=== PATIENT | female | born 1985 | race Caucasian/White ===

== ENCOUNTER → 2019-06-25 10:28 | Outpatient (CLI) | payer OTHER, SELFPAY ==
[2018-11-27 09:49] VITALS: BMI 28.0
[2019-06-25 12:21] LABS: hCG Titer Quant., Serum 3 mIU/mL (1-3)
== END ==
PROVIDERS: Visit Provider Obstetrics & Gynecology
DX: O20.0 Threatened abortion (principal); Z3A.00 Weeks of gestation of pregnancy not specified
CPT/HCPCS: 36415; 84702

== ENCOUNTER → 2019-06-27 11:33 | Outpatient (CLI) | payer OTHER, SELFPAY ==
[2018-11-27 09:49] VITALS: BMI 28.0
[2019-06-27 12:39] LABS: hCG Titer Quant., Serum 1 mIU/mL (1-3)
== END ==
PROVIDERS: Visit Provider Obstetrics & Gynecology
DX: O20.0 Threatened abortion (principal); Z3A.00 Weeks of gestation of pregnancy not specified
CPT/HCPCS: 36415; 84702

== ENCOUNTER → 2020-05-26 13:08 | Outpatient (CLI) | payer OTHER, SELFPAY ==
[2018-11-27 09:49] VITALS: BMI 28.0
[2020-05-26 14:18] LABS: hCG Titer Quant., Serum 3753 mIU/mL (1-3)
== END ==
PROVIDERS: Referring Provider Obstetrics & Gynecology; Visit Provider Obstetrics & Gynecology
DX: Z32.01 Encounter for pregnancy test, result positive (principal)
CPT/HCPCS: 36415; 84702

== ENCOUNTER → 2020-06-26 | Outpatient (CLI) | payer OTHER, SELFPAY ==
[2020-06-26 14:50] VITALS: BMI 27.6
[2020-06-26 17:52] LABS: Amphetamine Urine VISTA NEGATIVE (<1000 ng/mL); Barbiturate Urine VISTA NEGATIVE (< 200 ng/mL); Benzodiazepine Urine VISTA NEGATIVE (< 200 ng/mL); Cocaine Urine VISTA NEGATIVE (< 300 ng/mL); Ecstacy Urine VISTA NEGATIVE (< 500 ng/mL); Methadone Urine VISTA NEGATIVE (< 300 ng/mL); PCP Urine VISTA NEGATIVE (< 25 ng/mL); THC Urine VISTA NEGATIVE (< 50 ng/mL); Vista UDS pH Range 6
[2020-06-29 20:08] LABS: Chlamydia By Nucleic Acid AMP Negative (Negative)
[2020-06-29 21:39] LABS: Gonococcus By Nucleic Acid AMP Negative (Negative)
== END | disposition home or self-care (01) ==
LOC: LABSPEC 16:42
PROVIDERS: Visit Provider Obstetrics & Gynecology
DX: O09.529 Supervision of elderly multigravida, unspecified trimester (principal); Z12.4 Encounter for screening for malignant neoplasm of cervix; Z3A.00 Weeks of gestation of pregnancy not specified
CPT/HCPCS: 80307; 87086; 87491; 87591

== ENCOUNTER → 2020-07-10 15:06 | Outpatient (CLI) | payer OTHER, SELFPAY ==
[2020-06-26 14:50] VITALS: BMI 27.6
[2020-07-10 15:38] LABS: Absolute Lymphocyte Count 2.38 X10^3/uL (0.83-4.51); Absolute Neutrophil Count 4.1 X10^3/uL (2.0-7.7); Basophil# 0.08 X10^3/uL; Basophil% 1.1 % (0-1); Eosinophil# 0.29 X10^3/uL; Eosinophils% 3.9 % (0-5); Hematocrit 39.7 % (37-47); Hemoglobin 13.1 g/dL (12.0-15.0); Lymphocyte # 2.38 X10^3/ul (4.0); Lymphocyte % 31.7 % (19-41); Mean Corpuscular Hgb 28.3 pg (27.0-32.0); Mean Corpuscular Volume 85.7 fL (81-99); Mean Platelet Vol. 9.4 fl (6.2-12.0); NRBC Flagged by Analyzer 0 % (0-5); Neutrophil # 4.12 X10^3/uL (2.7-7.7); Neutrophil % 54.9 % (47-70); Platelet Count 311 K/mm3 (150-450); RBC Distribution Width CV 12.8 % (11.6-14.6); RBC Distribution Width SD 39.8 fl (35.1-43.9); Red Blood Count 4.63 M/mm3 (4.2-5.4); White Blood Count 7.5 K/mm3 (4.4-11.0)
[2020-07-11 09:03] LABS: HIV - WCH Non-Reactive (Nonreactive); Hepatitis B Surface Antigen Non-Reactive (Nonreactive); Hepatitis C Antibody Non-Reactive (Nonreactive)
[2020-07-13 02:11] LABS: Rapid Plasmin Reagin (RPR) NONREACTIVE (NONREACTIVE)
== END ==
PROVIDERS: Obstetrics & Gynecology; Referring Provider Family Medicine; Visit Provider Family Medicine
DX: O09.90 Supervision of high risk pregnancy, unspecified, unspecified trimester (principal); O09.529 Supervision of elderly multigravida, unspecified trimester
CPT/HCPCS: 36415; 85025; 86592; 86703; 86803; 86850; 86900; 86901; 87340

== ENCOUNTER → 2020-11-01 12:16 | Outpatient (CLI) | payer OTHER, SELFPAY ==
[2020-10-25 09:31] VITALS: BMI 31.5
[2020-11-01 14:47] LABS: Absolute Lymphocyte Count 2.17 X10^3/uL (0.83-4.51); Absolute Neutrophil Count 5.8 X10^3/uL (2.0-7.7); Basophil# 0.06 X10^3/uL; Basophil% 0.7 % (0-1); Eosinophil# 0.22 X10^3/uL; Eosinophils% 2.4 % (0-5); Hematocrit 35.4 % (37-47); Hemoglobin 11.5 g/dL (12.0-15.0); Lymphocyte # 2.17 X10^3/ul (4.0); Lymphocyte % 24.1 % (19-41); Mean Corp Hgb Conc 32.5 g/dL (32-36); Mean Corpuscular Hgb 29.7 pg (27.0-32.0); Mean Corpuscular Volume 91.5 fL (81-99); Mean Platelet Vol. 9.8 fl (6.2-12.0); Monocyte# 0.63 X10^3/uL; NRBC Flagged by Analyzer 0 % (0-5); Neutrophil % 64.4 % (47-70); Platelet Count 314 K/mm3 (150-450); RBC Distribution Width CV 12.8 % (11.6-14.6); RBC Distribution Width SD 42.4 fl (35.1-43.9); Red Blood Count 3.87 M/mm3 (4.2-5.4)
[2020-11-01 15:12] LABS: Glucose Challenge Gest 1H 50g 123 mg/dL (70-140)
== END ==
PROVIDERS: Referring Provider Obstetrics & Gynecology; Visit Provider Obstetrics & Gynecology
DX: O26.899 Other specified pregnancy related conditions, unspecified trimester (principal); Z67.91 Unspecified blood type, Rh negative; Z3A.00 Weeks of gestation of pregnancy not specified
CPT/HCPCS: 82950; 85025; 86850; 86900; 86901

== ENCOUNTER → 2020-12-21 12:21 | Outpatient (CLI) | payer OTHER, SELFPAY ==
[2020-11-29 14:10] VITALS: BMI 32.8
--- NOTE | 2020-12-21 12:35 | RAD_ITS ---
STUDY: X-RAY CHEST REASON FOR EXAM: Female, 35 years old. S/P COVID and gt;2 WEEKS/35 WEEKS TECHNIQUE: PA and lateral views of the chest. COMPARISON: None. FINDINGS: Patchy bibasilar infiltrates. Mild infiltrate in the right upper lobe. There is no demonstrated pleural abnormality. Normal size heart. Normal mediastinum and sisi. Normal visualized pulmonary arteries. Normal visualized aortic arch and descending thoracic aorta. Normal visualized thoracic spine. Normal visualized ribs, clavicles, and shoulders. There is no demonstrated abnormality of the visualized soft tissue structures of the upper abdomen. RAD/Chest PA and Lateral IMPRESSION: Patchy bibasilar infiltrates. Mild infiltrate in the right upper lobe. Electronically Signed: Prateek Leon MD at 13:06 EDT , Service support ,
== END ==
PROVIDERS: Referring Provider Anesthesiology; Visit Provider Anesthesiology
DX: O09.513 Supervision of elderly primigravida, third trimester (principal); Z3A.35 35 weeks gestation of pregnancy; Z86.16 Personal history of COVID-19
CPT/HCPCS: 71046

== ENCOUNTER 2020-12-21 16:24 | Inpatient (IN) | payer OTHER, SELFPAY ==
[2020-11-29 14:10] VITALS: BMI 32.8
[2020-12-21] VITALS (73 sets, daily range): BP systolic 116–136; BP diastolic 65–95; PULSE 79–113; RESP 14–22; TEMP 35.9–37.1; O2SAT 90–98; BMI 32.8; BMI 32.5
[2020-12-21 17:10] LABS: Basophil# 0.12 X10^3/uL; Eosinophil# 0.09 X10^3/uL; Hematocrit 37.6 % (37-47); Hemoglobin 12.3 g/dL (12.0-15.0); Lymphocyte # 1.46 X10^3/ul (0.83-4.51); Mean Corp Hgb Conc 32.7 g/dL (32-36); Mean Corpuscular Hgb 30.1 pg (27.0-32.0); Mean Corpuscular Volume 91.9 fL (81-99); Mean Platelet Vol. 9.8 fl (6.2-12.0); Monocyte# 0.62 X10^3/uL; NRBC Flagged by Analyzer 0.2 % (0-5); Neutrophil # 6.05 X10^3/uL (2.7-7.7); POSITIVE COUNT YES; POSITIVE MORPHOLOGY YES; Platelet Count 480 K/mm3 (150-450); RBC Distribution Width CV 12.8 % (11.6-14.6); RBC Distribution Width SD 43.1 fl (35.1-43.9); Red Blood Count 4.09 M/mm3 (4.2-5.4)
[2020-12-21 17:13] LABS: Differential Indicated SCAN CRITERIA MET
[2020-12-21 17:27] LABS: ALB/GLOB Ratio 0.4 RATIO (0.9-2.4); AST(SGOT) 82 U/L (15-37); Alanine Aminotransfer ALT/SGPT 48 U/L (13-56); Albumin, Serum 1.9 g/dL (3.2-5.0); Alkaline Phosphatase 296 U/L (45-117); Anion Gap 6 (5-15); BUN 9 mg/dL (7-18); BUN/Creat Ratio 14.2 RATIO (10-20); Calcium,Total 9.1 mg/dL (8.5-10.1); Chloride 109 mmol/L (98-107); Creatinine, Serum 0.63 mg/dL (0.55-1.02); EST Glomerular Filtration Rate 113 mL/min (>60); Est Glom Filt Rate - Afr Amer 136 mL/min (>60); Estimated Creatinine Clearance 120.05 ml/min; Globulin 4.9 g/dL (2.2-4.2); Glucose 80 mg/dL (74-106); Potassium 3.9 mmol/L (3.5-5.1); Protein, Total 6.8 g/dL (6.4-8.2); Sodium Level 140 mmol/L (136-145)
[2020-12-21 17:43] LABS: Lymphocyte 21 % (19-41); Metamyelocyte 3 % (0-1); Monocyte 6 % (0-10); Myelocyte 4 % (0-0); Neutrophil-Band 2 % (0-5); Neutrophil-Segmented 64 % (47-70); Total Cells Counted 100 (MANUAL DIFF)
[2020-12-21 17:44] LABS: Scan Smear per Review Criteria MANUAL DIFF
[2020-12-21 17:46] LABS: Absolute Lymphocyte Count 1.88 X10^3/uL (0.83-4.51); Absolute Neutrophil Count 5.9 X10^3/uL (2.0-7.7)
[2020-12-21 17:47] LABS: Platelet Estimate SLT INC (ADEQ)
[2020-12-21 17:48] LABS: Anisocytosis RARE; Macrocytosis RARE
[2020-12-21 18:04] LABS: Lactic Acid 1.2 mmol/L (0.4-1.9)
--- NOTE | 2020-12-21 18:05 | ED.VISSUMM ---
- ER Visit Summary Date of Service: 12/21/20 Chief Complaint: Shortness of breath History of Present Illness: The patient is a 35 F who presents with shortness of breath that has been getting worse over the past 2 weeks. Patient is approximately 35 weeks . Patient tested positive for COVID-19 approximately 2 weeks ago. Patient states her breathing is been getting progressively worse. Patient states that her oxygen saturations are 88 to 92% at home with walking and improved to 94 to 97% at rest. Patient states she finished a Z-Chandan with no improvement of her symptoms. Patient states she was started on Pulmicort yesterday evening. Patient saw her fifth hand today who referred her to the emergency department. Physical Examination: Vital signs are stable. Patient is afebrile. Patient is in no acute distress. Neck is supple. Trachea is midline. There is no JVD. Heart was regular rate and rhythm. Lungs are clear and equal bilaterally. There is adequate respiratory effort. Abdomen is soft. Bowel sounds are normal. There is a gravid uterus. There is no tenderness. Extremities are intact. There is 1-2+ edema of the lower extremities bilaterally. There is no calf tenderness. Cranial nerves II through XII are intact. There are no focal motor or sensory deficits. Test Results: Patient had a PA and lateral chest x-ray done earlier today as an outpatient which showed patchy bibasilar infiltrates and a mild infiltrate in the right upper lobe. This was interpreted by the radiologist and reviewed by myself. CBC showed slightly elevated platelet count of 480. Comprehensive metabolic profile showed a slightly elevated alk phos of 296 and AST of 82. Lactate was normal at 1.2. COVID-19 rapid antigen was obtained and was negative. This is likely a false negative since the patient is still symptomatic with COVID-19.. Therefore, a COVID-19 PCR was ordered and is pending. Emergency Department Course and Treatment: Patient was given a dose of Decadron here in the emergency department. Patient was given albuterol inhaler here in the emergency department. Dr. Martinez, patient's fifth hand was in to evaluate the patient and recommended admission. Case was discussed with Dr. Love, patient's ASSOCIATE ACCOUNT MANAGER. She will admit the patient to the OB unit. Patient and family understood and were agreeable with the plan. All questions were answered. Disposition: Admit to hospital Impression: 1. COVID-19 pneumonia 2. Third trimester This note was generated with Dreamscape [employer] dictation software. It may contain incorrect words, spelling, and punctuation that were not noted in review of the chart prior to signing ED Disposition - Plan for ED Patient: Disposition: Acute Care Hospital [facility] Diagnosis: Pneumonia due to COVID-19 virus, 34 weeks gestation of Referrals: Care Physician,No Primary [Primary Care Provider] -
[2020-12-21] MEDS: dexAMETHasone 10 MG/ML Vial 6 MG IV (18:16)
--- NOTE | 2020-12-21 19:40 | US_ITS ---
STUDY: SECOND AND THIRD TRIMESTER OBSTETRICAL ULTRASOUND - LIMITED REASON FOR EXAM: Female, 35 years old growth pt has COVID LMP: 04/17/2020 PRIOR ULTRASOUND: None. TECHNIQUE: Transabdominal TECHNICAL QUALITY: Adequate. FINDINGS: There is a single intrauterine fetus. The fetus is in a cephalic presentation. There is demonstrated cardiac activity with a heart rate of 169 bpm. There is a normal amniotic fluid volume. The largest amniotic fluid pocket measures 5.9 cm. The amniotic fluid index (ZACHARIAH) is 10.2 cm. The placenta is fundal in location. There are Grade 2 placental changes. The cervix measures 3.6 cm in length. BIOMETRY: BPD: 9.1 cm: 36 weeks, 5 days HC: 33.5 cm: 38 weeks, 1 days AC: 30.1 cm: 34 weeks, 0 days FL: 6.5 cm: 33 weeks, 2 days Age by LMP: 35 weeks, 3 days. DAVID by LMP: 01/22/2021. age by current US: 36 weeks, 0 days. DAVID by current US: 01/18/2021. Estimated weight: 2431 grams, +/- 365 grams, 23 percentile. Gender: US/OB Limited With Biometrics IMPRESSION: Living intrauterine of 36 weeks 0 days as described above. Electronically Signed: Erik Hart MD at 8:59 EDT Tel , Service support ,
--- NOTE | 2020-12-21 19:51 | CON.PCM_ITS ---
Problem List (1) Pneumonia due to COVID-19 virus Status: Acute (2) 34 weeks gestation of Status: Acute Comment: COVID test order 12/13/20 (3) COVID-19 affecting , antepartum Status: Acute Comment: Needs Baby ASA and growth US- 12/21/20 patient being admitted for IV antiviral- MFM being consulted (4) Grand multiparity Status: Acute (5) H/O precipitous labor and deliveries, antepartum Status: Acute (6) Rh negative state in antepartum period Status: Acute Comment: Rhogam PRN and at 28 weeks (7) Supervision of high risk , antepartum Status: Acute Comment: DAVID 01/22/21 PC: Fantasma Devine Ioan(Shaw), Bhanu Spouse: Cabrera(Shaw) (8) Status: Acute Qualifiers: Comment: declines genetic, carrier and NTD, anatomy nl (9) AMA (advanced maternal age) multigravida 35+ Status: Acute Qualifiers: Comment: growth scan at 36 weeks Reason for Consult Date of Consultation: 12/21/20 Reason for Consultation: Hypoxia History of Present Illness: The patient is a 35 year old F who is at 35 weeks and 4 days presenting with hypoxia after testing positive for Covid 19 virus around 12/09/2020. Patient reports that at around 12/07/2020 and 12/08/2020 she had symptoms of Covid. Her at that time had a fever. Patient subsequently tested positive for Covid-19 virus. She reports initial shortness of breath that worsened and now has improved somewhat. Also she had a cough which has improved. She reported that she checked her oxygen saturation at home. And at rest her oxygen saturati on was normal. However with ambulation her oxygen saturation is in the high 80s to 91%. 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 Chest x-ray outpatient taken on the day of presentation reportedly was classic for Covid-19. Patient had some phone conversation withDr. Marin prior to coming to the emergency department and was started on Pulmicort a day before presentation. Also on the day of presentation patient was seen at the ED by Dr. Marin. EMOTIONAL DISABILITIES TEACHER specialist reports that per conversation between Dr. Marin, flask carrier and infectious disease it is okay to start patient on remdesivir although patient symptoms is past 10 days. Past Medical History Medical History: Medical History (Last Reviewed 12/21/20 @ 20:[address] Bhanu Carrillo MD) No significant medical problems Allergies No Known Allergies Allergy (Verified 12/21/20 16:27) Home Medications: Ambulatory Orders Medication Instructions Recorded multivitamin no.47-iron fum 27 1 cap PO DAILY 06/21/20 mg-folate no.1 1 mg-dha 300 mg capsule Aspirin [Aspirin, Baby] 1 tablet PO DAILY 12/21/20 Robitussin 10 mg DAILY PRN PRN 12/21/20 Surgical History: Surgical History (Last Reviewed 12/21/20 @ 20:[address] Bhanu Carrillo MD) H/O wisdom tooth extraction K08.409 Smoking Status: Never smoker Tobacco Use: Non-smoker - *Family History Maternal Family History: Family History (Last Reviewed 12/21/20 @ 20:[address] Bhanu Carrillo MD) Grandmother Cancer Grandmother Cancer Review of Systems Constitutional: Reports: Malaise, Weakness, Fatigue. Denies: Chills, Fever HEENT: Denies: Head Aches, Sinus Congestion, Sinus Drainage Cardiovascular: Reports: Edema - Started with . Denies: Chest Pain, Palpitations Respiratory: Reports: Cough, Shortness of Breath Gastrointestinal: Denies: Abdominal Pain, Nausea, Vomiting Genitourinary: Denies: Dysuria Musculoskeletal: Denies: Joint Pain, Joint Tenderness Skin: Denies: Rash, Wounds Neurological: Denies: Numbness, Tingling, Focal weakness Psychiatric: Denies: Anxiety, Depression, Homicidal Ideations, Suicidal Ideations Hematologic/ Lymphatic: Denies: Easy Bruising, Easy Bleeding Patient Problems: Active and Suspected Problems (Last Reviewed 12/21/20 @ 20:[address] Bhanu Carrillo MD) Pneumonia due to COVID-19 virus (Acute) 34 weeks gestation of (Acute) COVID test order 12/13/20 COVID-19 affecting , antepartum (Acute) Needs Baby ASA and growth US- 12/21/20 patient being admitted for IV antiviral- MFM being consulted Grand multiparity (Acute) H/O precipitous labor and deliveries, antepartum (Acute) Rh negative state in antepartum period (Acute) Rhogam PRN and at 28 weeks Supervision of high risk , antepartum (Acute) DAVID 01/22/21 PC: Nilson, Fantasma, Cabrera(Shaw), Bhanu Spouse: Cabrera(Shaw) (Acute) declines genetic, carrier and NTD, anatomy nl AMA (advanced maternal age) multigravida 35+ (Acute) growth scan at 36 weeks - Physical Exam Vitals/I&O's: Vital Signs Temp Pulse Resp BP Pulse Ox 97.7 F L 105 H 21 H 135/72 H 90 12/21/20 18:17 12/21/20 19:47 12/21/20 18:17 12/21/20 19:10 12/21/20 19:47 Oxygen Delivery Method Room Air Weight: 95 kg Body Mass Index (BMI) 32.8 General: Alert, Oriented x3, Cooperative HEENT: Atraumatic, PERRLA, EOMI, Normocephalic Neck: Supple, No JVD, Negative Carotid Bruits Lungs: Clear to auscultation, Normal air movement Cardiovascular: Regular rate, Normal S1, Normal S2, No murmurs Abdomen: Bowel Sounds Present, Soft, Non Tender, - - Protruded abdomen consistent with . Extremities: Capillary Refill Less than 3 Seconds, Edema - bilateral feet. Skin: No rashes, No breakdown Musculoskeletal: No Tenderness to Palpation of Joints or Extremities Neurological: Cranial nerves II-XII grossly intact Psych/Mental Status: Normal Affect, Appropriate Microbiology Past 72 Hours 12/21/20 17:19 Nasal Secretion SARS-CoV-2 Antigen (Rapid) - Final Laboratory Results 12/21/20 15:15: Lactic Acid 1.2 12/21/20 16:41: WBC 9.0, RBC 4.09 L, Hgb 12.3, Hct 37.6, MCV 91.9, MCH 30.1, MCHC 32.7, RDW Std Deviation 43.1, RDW Coeff of Jim 12.8, Plt Count 480 H, MPV 9.8, Immature Gran % (Auto) FIRE INFORMATION OFFICER, Neut % (Auto) FIRE INFORMATION OFFICER, Lymph % (Auto) FIRE INFORMATION OFFICER, Haskell % (Auto) FIRE INFORMATION OFFICER, Eos % (Auto) FIRE INFORMATION OFFICER, Baso % (Auto) FIRE INFORMATION OFFICER, Absolute Neuts (auto) 5.9, Absolute Lymphs (auto) 1.88, Total Counted 100, Neutrophils % (Manual) 64, Band Neutrophils % 2, Lymphocytes % (Manual) 21, Monocytes % (Manual) 6, Metamyelocytes % 3 H, Myelocytes % 4 H, Nucleated RBC % 0.2, Diff Path Review May foll, Platelet Estimate SLT INC, Anisocytosis RARE, Macrocytosis RARE 12/21/20 16:41: Sodium 140, Potassium 3.9, Chloride 109 H, Carbon Dioxide 25.0, Anion Gap 6, BUN 9, Creatinine 0.63, Estim Creat Clear Calc 120.05, Est GFR (MDRD) Af Amer 136, Est GFR (MDRD) Non-Af 113, BUN/Creatinine Ratio 14.2, Glucose 80, Calcium 9.1, Total Bilirubin 0.80, AST 82 H, ALT 48, Alkaline Phosphatase 296 H, Total Protein 6.8, Albumin 1.9 L, Globulin 4.9 H, Albumin/Globulin Ratio 0.4 L 12/21/20 18:20: COVID-19 (JENNY) Pending Current Medications Aspirin (Aspirin 81 Mg Tab.Chew) mg PO DAILY JOSEF Dexamethasone Sodium Phosphate (Dexamethasone 4 Mg/Ml Vial) 6 mg IV Q12 JOSEF Enoxaparin Sodium (Enoxaparin 40 Mg/0.4 Ml Syringe) 40 mg SC DAILY JOSEF Remdesivir 200 mg/ Sodium (Chloride) 250 mls @ 125 mls/hr IV X1 ONE; Protocol Stop: 12/21/20 21:39 Remdesivir 100 mg/ Sodium (Chloride) 250 mls @ 125 mls/hr IV DAILY JOSEF; Protocol Stop: 12/25/20 11:59 Non-Formulary Medication ( 47/Iron/Folate 1/Dha [Virt-Pn Dha Softgel]) 1 cap PO DAILY JOSEF Assessment/Plan All Active Problems (Last Reviewed 12/21/20 @ 20:[address] Bhanu Carrillo MD) Pneumonia due to COVID-19 virus (Acute) 34 weeks gestation of (Acute) COVID-19 affecting , antepartum (Acute) Grand multiparity (Acute) H/O precipitous labor and deliveries, antepartum (Acute) Rh negative state in antepartum period (Acute) Supervision of high risk , antepartum (Acute) (Acute) AMA (advanced maternal age) multigravida 35+ (Acute) The patient is a 35 year old F who is at 35 weeks and 4 days presenting with hypoxia and shortness of breath after testing positive for Covid 19 virus around 12/09/2020. Acute hypoxemic respiratory insufficiency secondary to SARS- COV 2 Reportedly her oxygen saturation was in the high 80s to lower 90s with ambulation or exertion. Oxygen supplementation as needed to maintain oxygen saturation more than 92%. Radiologist impression of chest x-ray obtained before patient came to emergency department: Patchy bibasilar infiltrates. Mild infiltrate in the right upper lobe. Actual image of the chest x-ray was reviewed and independently interpreted. I agree with radiologist interpretation. Positive coronavirus test outpatient. COVID-19 PCR test was ordered at emergency department and results are pending. Will check a procalcitonin level Received a Decadron 6 mg IV at emergency department. Discussed the case with EMOTIONAL DISABILITIES TEACHER specialist who said that patient will receive augmented dose of Decadron also for lung maturity. Discussed case with EMOTIONAL DISABILITIES TEACHER specialist who said that Per recommendations from Dr. Marin, Pulmonology and infectious disease patient will be started on remdesivir. Defer remdesivir dosing to EMOTIONAL DISABILITIES TEACHER. Trend CMP and CBC 35 weeks and 4 days Management by primary, EMOTIONAL DISABILITIES TEACHER Elevated liver enzymes. Patient with elevated AST and alkaline phosphatase. Trend CMP. DVT prophylaxis Lovenox ordered by primary. Inpatient E&M: [id number] Subs Hosp L2
[2020-12-21] MEDS: Prenatal Vits Tablet 1 TABLET PO (21:30)
--- NOTE | 2020-12-21 21:30 | HP.PCM_ITS ---
- Problem List (1) Pneumonia due to COVID-19 virus Status: Acute (2) 34 weeks gestation of Status: Acute Comment: COVID test order 12/13/20 (3) COVID-19 affecting , antepartum Status: Acute Comment: Needs Baby ASA and growth US- 12/21/20 patient being admitted for IV antiviral- MFM being consulted (4) Grand multiparity Status: Acute (5) H/O precipitous labor and deliveries, antepartum Status: Acute (6) Rh negative state in antepartum period Status: Acute Comment: Rhogam PRN and at 28 weeks (7) Supervision of high risk , antepartum Status: Acute Comment: DAVID 01/22/21 PC: Fantasma Devine Ioan(Shaw), Bhanu Spouse: Cabrera(Shaw) (8) Status: Acute Qualifiers: Comment: declines genetic, carrier and NTD, anatomy nl (9) AMA (advanced maternal age) multigravida 35+ Status: Acute Qualifiers: Comment: growth scan at 36 weeks History Date of Admission: 12/21/20 Final DAVID: 01/22/21 Gestational age: 35 Weeks and 3 Days History of this : This is a 35 year-old, G 6, P 4, at 35 weeks gestational age admitted due to Covid 19 in . Patient first tested positive for Covid 14 days ago. Has had minimal relief in her symptoms since this time and has had ongoing shortness of breath as well as cough. Patient was planning to see a Dr. Martinez from pulmonology as an outpatient, but when he spoke to the patient on the phone today she was noted to be increasingly dyspneic between sentences. She went for chest x-ray that demonstrated bilateral infiltrates consistent with pneumonia related to COVID-19. Patient reports continues to feel short of breath. Denies lightheadedness and dizziness. Patient was noted to have a decrease in her sats with ambulation as low as the 80s. Patient was admitted for symptomatic management and inpatient monitoring. Medical History: Medical History (Last Reviewed 12/21/20 @ 20:[address] Bhanu Carrillo MD) No significant medical problems Surgical History: Surgical History (Last Reviewed 12/21/20 @ 20:[address] Bhanu Carrillo MD) H/O wisdom tooth extraction K08.409 Allergies No Known Allergies Allergy (Verified 12/21/20 16:27) Home Medications: Home Medications multivitamin no.47-iron fum 27 mg-folate no.1 1 mg-dha 300 mg capsule 1 cap PO DAILY 06/21/20 Aspirin [Aspirin, Baby] 1 tablet PO DAILY 12/21/20 Robitussin 10 mg DAILY PRN PRN 12/21/20 Smoking Status: Never smoker NST - FHR Rate Baby A Baseline: 140 Variability:: Moderate Accelerations:: 15 x 15 Decelerations:: None NST Reactive:: Yes FHR Category:: Category I Uterine Activity:: None History Past Pregnancies: Past Pregnancies Delivery Date Name GA/ Weeks Outcome Route Wt Sex Labor Length Anesthesia Delivery Location Provider FOB Labs: Laboratory Tests 12/21/20 12/21/20 12/21/20 Range/Units 16:41 16:41 15:15 WBC 9.0 (4.4-11.0) K/mm3 RBC 4.09 L (4.2-5.4) M/mm3 Hgb 12.3 (12.0-15.0) g/dL Hct 37.6 (37-47) % MCV 91.9 (81-99) fL MCH 30.1 (27.0-32.0) pg MCHC 32.7 (32-36) g/dL RDW Std Deviation 43.1 (35.1-43.9) fl RDW Coeff of Jim 12.8 (11.6-14.6) % Plt Count 480 H (150-450) K/mm3 MPV 9.8 (6.2-12.0) fl Immature Gran % (Auto) PERSONAL CARE AIDE Neut % (Auto) PERSONAL CARE AIDE Lymph % (Auto) PERSONAL CARE AIDE Weston % (Auto) PERSONAL CARE AIDE Eos % (Auto) PERSONAL CARE AIDE Baso % (Auto) PERSONAL CARE AIDE Absolute Neuts (auto) 5.9 (2.0-7.7) X10^3/uL Absolute Lymphs (auto) 1.88 (0.83-4.51) X10^3/uL Total Counted 100 (MANUAL DIFF) Neutrophils % (Manual) 64 (47-70) % Band Neutrophils % 2 (0-5) % Lymphocytes % (Manual) 21 (19-41) % Monocytes % (Manual) 6 (0-10) % Metamyelocytes % 3 H (0-1) % Myelocytes % 4 H (0-0) % Nucleated RBC % 0.2 (0-5) % Diff Path Review May foll Platelet Estimate SLT INC (ADEQ) Anisocytosis RARE Macrocytosis RARE Sodium 140 (136-145) mmol/L Potassium 3.9 (3.5-5.1) mmol/L Chloride 109 H (98-107) mmol/L Carbon Dioxide 25.0 (21.0-32.0) mmol/L Anion Gap 6 (5-15) BUN 9 (7-18) mg/dL Creatinine 0.63 (0.55-1.02) mg/dL Estim Creat Clear Calc 120.05 ml/min Est GFR (MDRD) Af Amer 136 (>60) mL/min Est GFR (MDRD) Non-Af 113 (>60) mL/min BUN/Creatinine Ratio 14.2 (10-20) RATIO Glucose 80 (74-106) mg/dL Lactic Acid 1.2 (0.4-1.9) mmol/L Calcium 9.1 (8.5-10.1) mg/dL Total Bilirubin 0.80 (0.20-1.00) mg/dL AST 82 H (15-37) U/L ALT 48 (13-56) U/L Alkaline Phosphatase 296 H (45-117) U/L Total Protein 6.8 (6.4-8.2) g/dL Albumin 1.9 L (3.2-5.0) g/dL Globulin 4.9 H (2.2-4.2) g/dL Albumin/Globulin Ratio 0.4 L (0.9-2.4) RATIO Mom's Microbiology 12/21/20 17:19 Nasal Secretion SARS-CoV-2 Antigen (Rapid) - Final 12/21/20 15:15 Blood Culture (Wb) - Anticubital Right Blood Culture - Pending 12/21/20 15:25 Blood Culture (Wb) - Anticubital Left Blood Culture - Pending Mom's Problem List Problem Status Onset Code Pneumonia due to COVID-19 virus Acute U07.1, J12.82 34 weeks gestation of Acute Z3A.34 COVID-19 affecting , antepartum Acute O98.519, U07.1 Grand multiparity Acute Z64.1 H/O precipitous labor and deliveries, antepartum Acute O09.219 Rh negative state in antepartum period Acute O26.899, Z67.91 Supervision of high risk , antepartum Acute O09.90 Acute Z34.90 AMA (advanced maternal age) multigravida 35+ Acute O09.529 Mom's Labs & Results 12/21/20 12/21/20 12/21/20 15:15 16:41 16:41 WBC 9.0 RBC 4.09 L Hgb 12.3 Hct 37.6 MCV 91.9 MCH 30.1 MCHC 32.7 RDW Std Deviation 43.1 RDW Coeff of Jim 12.8 Plt Count 480 H MPV 9.8 Immature Gran % (Auto) PERSONAL CARE AIDE Neut % (Auto) PERSONAL CARE AIDE Lymph % (Auto) PERSONAL CARE AIDE Weston % (Auto) PERSONAL CARE AIDE Eos % (Auto) PERSONAL CARE AIDE Baso % (Auto) PERSONAL CARE AIDE Absolute Neuts (auto) 5.9 Absolute Lymphs (auto) 1.88 Total Counted 100 Neutrophils % (Manual) 64 Band Neutrophils % 2 Lymphocytes % (Manual) 21 Monocytes % (Manual) 6 Metamyelocytes % 3 H Myelocytes % 4 H Nucleated RBC % 0.2 Diff Path Review May foll Platelet Estimate SLT INC Anisocytosis RARE Macrocytosis RARE Sodium 140 Potassium 3.9 Chloride 109 H Carbon Dioxide 25.0 Anion Gap 6 BUN 9 Creatinine 0.63 Estim Creat Clear Calc 120.05 Est GFR (MDRD) Af Amer 136 Est GFR (MDRD) Non-Af 113 BUN/Creatinine Ratio 14.2 Glucose 80 Lactic Acid 1.2 Calcium 9.1 Total Bilirubin 0.80 AST 82 H ALT 48 Alkaline Phosphatase 296 H Total Protein 6.8 Albumin 1.9 L Globulin 4.9 H Albumin/Globulin Ratio 0.4 L Procalcitonin COVID-19 (JENNY) 12/21/20 12/21/20 18:20 21:15 WBC RBC Hgb Hct MCV MCH MCHC RDW Std Deviation RDW Coeff of Jim Plt Count MPV Immature Gran % (Auto) Neut % (Auto) Lymph % (Auto) Weston % (Auto) Eos % (Auto) Baso % (Auto) Absolute Neuts (auto) Absolute Lymphs (auto) Total Counted Neutrophils % (Manual) Band Neutrophils % Lymphocytes % (Manual) Monocytes % (Manual) Metamyelocytes % Myelocytes % Nucleated RBC % Diff Path Review Platelet Estimate Anisocytosis Macrocytosis Sodium Potassium Chloride Carbon Dioxide Anion Gap BUN Creatinine Estim Creat Clear Calc Est GFR (MDRD) Af Amer Est GFR (MDRD) Non-Af BUN/Creatinine Ratio Glucose Lactic Acid Calcium Total Bilirubin AST ALT Alkaline Phosphatase Total Protein Albumin Globulin Albumin/Globulin Ratio Procalcitonin Pending COVID-19 (JENNY) Pending Social History Smoking Status Never smoker Review of Systems Constitutional: Reports: Chills, Fever, Fatigue Eyes: Denies: Vision Change HEENT: Denies: Head Aches Cardiovascular: Denies: Chest Pain, Chest Pressure, Chest Tightness, Light Headedness Respiratory: Reports: Cough, Shortness of Breath, Shortness of breath upon exertion Gastrointestinal: Denies: Abdominal Pain, Nausea, Vomiting Genitourinary: Denies: Dysuria, Frequency, Hematuria Gynecological: Denies: Vaginal bleeding, Vaginal discharge, Vaginal itching Physical Exam Vitals: Vital Signs Temp Pulse Resp BP Pulse Ox 97.7 F L 97 21 H 128/65 H 96 12/21/20 20:08 12/21/20 21:26 12/21/20 18:17 12/21/20 20:23 12/21/20 21:26 General: Alert, Oriented x3, Cooperative, No apparent distress, Well developed, Well nourished HEENT: Atraumatic, PERRLA, EOMI, Normocephalic Cardiovascular: Regular rate, Regular Rhythm Lungs: Rales, Short of Breath Abdomen: Soft, Non Tender, Non-Distended, Gravid, Appropriate for Gestational Age Extremities:: No edema Neurological: Cranial nerves II-XII grossly intact, Neuro grossly intact Estimated gestational size: Appropriate for gestational size Presentation: Cephalic Assessment/Plan All Active Problems (Last Reviewed 12/21/20 @ 20:[address] Bhanu Carrillo MD) Pneumonia due to COVID-19 virus (Acute) 34 weeks gestation of (Acute) COVID-19 affecting , antepartum (Acute) Grand multiparity (Acute) H/O precipitous labor and deliveries, antepartum (Acute) Rh negative state in antepartum period (Acute) Supervision of high risk , antepartum (Acute) (Acute) AMA (advanced maternal age) multigravida 35+ (Acute) This is a 35 year-old, G 6 P4 at 35 weeks gestational age admitted for pneumonia related to COVID-19 and Pneumonia secondary to COVID-19 -Tested positive for Covid 14 days ago, but has had ongoing shortness of breath -Chest x-ray showed bilateral pulmonary infiltrates -Patient maintaining sats greater than 95% and less ambulating in which case she drops down to the low 90s. -Patient seen by Dr. Martinez who discussed the case with infectious disease. Per pulmonology and infectious disease, consider remdesivir. This will be discussed with Dr. Martinez by pharmacy in the morning as patient is out of the 10-day window -Per pulmonology, patient admitted for symptomatic management of COVID-19 pneumonia. Decadron ordered for treatment of symptoms. Dose ordered as 12 mg every 12 hours as this will adequate for lung development as well -Case discussed with Dr. Shaw from maternal- medicine who agrees with steroids, possible remdesivir, growth ultrasound, and Lovenox. -Growth ultrasound ordered -Lovenox ordered given hypercoagulable state due to COVID-19 and -We will keep on continuous monitoring due to risks associated with maternal hypoxia -Internal medicine consulted for medical management of symptoms-ordered procalcitonin -Albuterol as needed for shortness of breath at 35 weeks gestation -Continuous monitoring -Growth ultrasound ordered -Cephalic -General diet -Decadron ordered for lung maturity and COVID-19 symptomatic management Multi Select Codes - Visit Charges Observation E&M Codin Initial observation care L2 - Urinary/Genital Urinary/Genital CPT Codes: 97190-48 non-stress test Interp
[2020-12-21] MEDS: Enoxaparin 40 MG/0.4 ML Syringe SC (21:31)
[2020-12-21] MEDS: Aspirin 81 MG TAB.CHEW PO (21:31)
[2020-12-21] MEDS: 0.9% Saline Lock 10 ML Syringe IV ×2 (21:56→23:38)
[2020-12-21 22:02] LABS: Procalcitonin 0.31 ng/mL (0.00-0.09)
[2020-12-22] VITALS (210 sets, daily range): BP systolic 113–133; BP diastolic 63–79; PULSE 62–156; TEMP 36–36.8; O2SAT 80–98
[2020-12-22] MEDS: 0.9% Saline Lock 10 ML Syringe IV ×2 (01:51→09:46)
[2020-12-22 05:28] LABS: Hematocrit 34.8 % (37-47); Hemoglobin 11.2 g/dL (12.0-15.0); Mean Corp Hgb Conc 32.2 g/dL (32-36); Mean Corpuscular Hgb 28.9 pg (27.0-32.0); Mean Corpuscular Volume 89.9 fL (81-99); Mean Platelet Vol. 9.5 fl (6.2-12.0); Platelet Count 471 K/mm3 (150-450); RBC Distribution Width CV 12.8 % (11.6-14.6); RBC Distribution Width SD 41.8 fl (35.1-43.9); Red Blood Count 3.87 M/mm3 (4.2-5.4); White Blood Count 8.8 K/mm3 (4.4-11.0)
[2020-12-22 05:46] LABS: ALB/GLOB Ratio 0.4 RATIO (0.9-2.4); AST(SGOT) 64 U/L (15-37); Alanine Aminotransfer ALT/SGPT 43 U/L (13-56); Albumin, Serum 1.8 g/dL (3.2-5.0); Alkaline Phosphatase 280 U/L (45-117); Anion Gap 8 (5-15); BUN 8 mg/dL (7-18); Calcium,Total 8.7 mg/dL (8.5-10.1); Chloride 109 mmol/L (98-107); Creatinine, Serum 0.57 mg/dL (0.55-1.02); EST Glomerular Filtration Rate 126 mL/min (>60); Est Glom Filt Rate - Afr Amer 153 mL/min (>60); Estimated Creatinine Clearance 132.69 ml/min; Globulin 4.6 g/dL (2.2-4.2); Glucose 88 mg/dL (74-106); Potassium 3.9 mmol/L (3.5-5.1); Protein, Total 6.4 g/dL (6.4-8.2); Sodium Level 139 mmol/L (136-145)
[2020-12-22] MEDS: dexAMETHasone 10 MG/ML Vial 6 MG IV (09:45)
--- NOTE | 2020-12-22 12:50 | PCM.PN.OB ---
Patient Problems: Active and Suspected Problems (Last Reviewed 12/21/20 @ 20:[address] Bhanu Carrillo MD) Pneumonia due to COVID-19 virus (Acute) 34 weeks gestation of (Acute) COVID test order 12/13/20 COVID-19 affecting , antepartum (Acute) Needs Baby ASA and growth US- 12/21/20 patient being admitted for IV antiviral- MFM being consulted Grand multiparity (Acute) H/O precipitous labor and deliveries, antepartum (Acute) Rh negative state in antepartum period (Acute) Rhogam PRN and at 28 weeks Supervision of high risk , antepartum (Acute) DAVID 01/22/21 PC: Fantasma Devine, Cabrera(Shaw), Bhanu Spouse: Cabrera(Shaw) (Acute) declines genetic, carrier and NTD, anatomy nl AMA (advanced maternal age) multigravida 35+ (Acute) growth scan at 36 weeks Subjective: Patient seen and examined. Reports overall doing well. Not feeling short of breath, only with ambulation. Continues to have coughing. Denies chest pain, lightheadedness, fevers. Objective: Laboratory Tests 12/22/20 12/22/20 12/21/20 Range/Units 05:15 05:15 21:15 WBC 8.8 (4.4-11.0) K/mm3 RBC 3.87 L (4.2-5.4) M/mm3 Hgb 11.2 L (12.0-15.0) g/dL Hct 34.8 L (37-47) % MCV 89.9 (81-99) fL MCH 28.9 (27.0-32.0) pg MCHC 32.2 (32-36) g/dL RDW Std Deviation 41.8 (35.1-43.9) fl RDW Coeff of Jim 12.8 (11.6-14.6) % Plt Count 471 H (150-450) K/mm3 MPV 9.5 (6.2-12.0) fl Immature Gran % (Auto) Neut % (Auto) Lymph % (Auto) [place] % (Auto) Eos % (Auto) Baso % (Auto) Absolute Neuts (auto) (2.0-7.7) X10^3/uL Absolute Lymphs (auto) (0.83-4.51) X10^3/uL Total Counted (MANUAL DIFF) Neutrophils % (Manual) (47-70) % Band Neutrophils % (0-5) % Lymphocytes % (Manual) (19-41) % Monocytes % (Manual) (0-10) % Metamyelocytes % (0-1) % Myelocytes % (0-0) % Nucleated RBC % (0-5) % Diff Path Review Platelet Estimate (ADEQ) Anisocytosis Macrocytosis Sodium 139 (136-145) mmol/L Potassium 3.9 (3.5-5.1) mmol/L Chloride 109 H (98-107) mmol/L Carbon Dioxide 22.0 (21.0-32.0) mmol/L Anion Gap 8 (5-15) BUN 8 (7-18) mg/dL Creatinine 0.57 (0.55-1.02) mg/dL Estim Creat Clear Calc 132.69 ml/min Est GFR (MDRD) Af Amer 153 (>60) mL/min Est GFR (MDRD) Non-Af 126 (>60) mL/min BUN/Creatinine Ratio 14.0 (10-20) RATIO Glucose 88 (74-106) mg/dL Lactic Acid (0.4-1.9) mmol/L Calcium 8.7 (8.5-10.1) mg/dL Total Bilirubin 0.70 (0.20-1.00) mg/dL AST 64 H (15-37) U/L ALT 43 (13-56) U/L Alkaline Phosphatase 280 H (45-117) U/L Total Protein 6.4 (6.4-8.2) g/dL Albumin 1.8 L (3.2-5.0) g/dL Globulin 4.6 H (2.2-4.2) g/dL Albumin/Globulin Ratio 0.4 L (0.9-2.4) RATIO Procalcitonin 0.31 H (0.00-0.09) ng/mL COVID-19 (JENNY) (Not Detect) 12/21/20 12/21/20 12/21/20 Range/Units 18:20 16:41 16:41 WBC 9.0 (4.4-11.0) K/mm3 RBC 4.09 L (4.2-5.4) M/mm3 Hgb 12.3 (12.0-15.0) g/dL Hct 37.6 (37-47) % MCV 91.9 (81-99) fL MCH 30.1 (27.0-32.0) pg MCHC 32.7 (32-36) g/dL RDW Std Deviation 43.1 (35.1-43.9) fl RDW Coeff of Jim 12.8 (11.6-14.6) % Plt Count 480 H (150-450) K/mm3 MPV 9.8 (6.2-12.0) fl Immature Gran % (Auto) SCIENTIFIC PROGRAMMER ANALYST Neut % (Auto) SCIENTIFIC PROGRAMMER ANALYST Lymph % (Auto) SCIENTIFIC PROGRAMMER ANALYST [place] % (Auto) SCIENTIFIC PROGRAMMER ANALYST Eos % (Auto) SCIENTIFIC PROGRAMMER ANALYST Baso % (Auto) SCIENTIFIC PROGRAMMER ANALYST Absolute Neuts (auto) 5.9 (2.0-7.7) X10^3/uL Absolute Lymphs (auto) 1.88 (0.83-4.51) X10^3/uL Total Counted 100 (MANUAL DIFF) Neutrophils % (Manual) 64 (47-70) % Band Neutrophils % 2 (0-5) % Lymphocytes % (Manual) 21 (19-41) % Monocytes % (Manual) 6 (0-10) % Metamyelocytes % 3 H (0-1) % Myelocytes % 4 H (0-0) % Nucleated RBC % 0.2 (0-5) % Diff Path Review May foll Platelet Estimate T INC (ADEQ) Anisocytosis RARE Macrocytosis RARE Sodium 140 (136-145) mmol/L Potassium 3.9 (3.5-5.1) mmol/L Chloride 109 H (98-107) mmol/L Carbon Dioxide 25.0 (21.0-32.0) mmol/L Anion Gap 6 (5-15) BUN 9 (7-18) mg/dL Creatinine 0.63 (0.55-1.02) mg/dL Estim Creat Clear Calc 120.05 ml/min Est GFR (MDRD) Af Amer 136 (>60) mL/min Est GFR (MDRD) Non-Af 113 (>60) mL/min BUN/Creatinine Ratio 14.2 (10-20) RATIO Glucose 80 (74-106) mg/dL Lactic Acid (0.4-1.9) mmol/L Calcium 9.1 (8.5-10.1) mg/dL Total Bilirubin 0.80 (0.20-1.00) mg/dL AST 82 H (15-37) U/L ALT 48 (13-56) U/L Alkaline Phosphatase 296 H (45-117) U/L Total Protein 6.8 (6.4-8.2) g/dL Albumin 1.9 L (3.2-5.0) g/dL Globulin 4.9 H (2.2-4.2) g/dL Albumin/Globulin Ratio 0.4 L (0.9-2.4) RATIO Procalcitonin (0.00-0.09) ng/mL COVID-19 (JENNY) Not Detected (Not Detect) 12/21/20 Range/Units 15:15 WBC (4.4-11.0) K/mm3 RBC (4.2-5.4) M/mm3 Hgb (12.0-15.0) g/dL Hct (37-47) % MCV (81-99) fL MCH (27.0-32.0) pg MCHC (32-36) g/dL RDW Std Deviation (35.1-43.9) fl RDW Coeff of Jim (11.6-14.6) % Plt Count (150-450) K/mm3 MPV (6.2-12.0) fl Immature Gran % (Auto) Neut % (Auto) Lymph % (Auto) Ell[place] % (Auto) Eos % (Auto) Baso % (Auto) Absolute Neuts (auto) (2.0-7.7) X10^3/uL Absolute Lymphs (auto) (0.83-4.51) X10^3/uL Total Counted (MANUAL DIFF) Neutrophils % (Manual) (47-70) % Band Neutrophils % (0-5) % Lymphocytes % (Manual) (19-41) % Monocytes % (Manual) (0-10) % Metamyelocytes % (0-1) % Myelocytes % (0-0) % Nucleated RBC % (0-5) % Diff Path Review Platelet Estimate (ADEQ) Anisocytosis Macrocytosis Sodium (136-145) mmol/L Potassium (3.5-5.1) mmol/L Chloride (98-107) mmol/L Carbon Dioxide (21.0-32.0) mmol/L Anion Gap (5-15) BUN (7-18) mg/dL Creatinine (0.55-1.02) mg/dL Estim Creat Clear Calc ml/min Est GFR (MDRD) Af Amer (>60) mL/min Est GFR (MDRD) Non-Af (>60) mL/min BUN/Creatinine Ratio (10-20) RATIO Glucose (74-106) mg/dL Lactic Acid 1.2 (0.4-1.9) mmol/L Calcium (8.5-10.1) mg/dL Total Bilirubin (0.20-1.00) mg/dL AST (15-37) U/L ALT (13-56) U/L Alkaline Phosphatase (45-117) U/L Total Protein (6.4-8.2) g/dL Albumin (3.2-5.0) g/dL Globulin (2.2-4.2) g/dL Albumin/Globulin Ratio (0.9-2.4) RATIO Procalcitonin (0.00-0.09) ng/mL COVID-19 (JENNY) (Not Detect) - Physical Exam Vitals/I&O's: Vital Signs Temp Pulse Resp BP Pulse Ox 97.8 F 99 21 H 129/79 H 96 12/22/20 12:45 12/22/20 12:49 12/21/20 18:17 12/22/20 12:45 12/22/20 12:49 Oxygen Delivery Method Room Air Weight: 208 lb Body Mass Index (BMI) 32.5 Intake and Output for Last 24 Hours 12/20/20 12/21/20 12/22/20 23:59 23:59 23:59 Intake Total 450 / 450 650 / 650 Balance 450 / 450 650 / 650 General: Alert, Oriented x3, Cooperative, No apparent distress, Well developed, Well nourished HEENT: Atraumatic, PERRLA, EOMI, Normocephalic Neck: Supple, No JVD Lungs: No rales - in lung bases, Diminished - at bases Cardiovascular: Regular rate, Regular Rhythm Abdomen: Soft, Non Tender, Non-Distended, Gravid, Appropriate for Gestational Age Extremities: No cyanosis, No edema, No Calf Tenderness Neurological: Cranial nerves II-XII grossly intact, Neuro grossly intact Psych/Mental Status: Normal Affect, Appropriate Microbiology Past 72 Hours 12/21/20 17:19 Nasal Secretion SARS-CoV-2 Antigen (Rapid) - Final Laboratory Results 12/21/20 15:15: Lactic Acid 1.2 12/21/20 16:41: WBC 9.0, RBC 4.09 L, Hgb 12.3, Hct 37.6, MCV 91.9, MCH 30.1, MCHC 32.7, RDW Std Deviation 43.1, RDW Coeff of Jim 12.8, Plt Count 480 H, MPV 9.8, Immature Gran % (Auto) SCIENTIFIC PROGRAMMER ANALYST, Neut % (Auto) SCIENTIFIC PROGRAMMER ANALYST, Lymph % (Auto) SCIENTIFIC PROGRAMMER ANALYST, [place] % (Auto) SCIENTIFIC PROGRAMMER ANALYST, Eos % (Auto) SCIENTIFIC PROGRAMMER ANALYST, Baso % (Auto) SCIENTIFIC PROGRAMMER ANALYST, Absolute Neuts (auto) 5.9, Absolute Lymphs (auto) 1.88, Total Counted 100, Neutrophils % (Manual) 64, Band Neutrophils % 2, Lymphocytes % (Manual) 21, Monocytes % (Manual) 6, Metamyelocytes % 3 H, Myelocytes % 4 H, Nucleated RBC % 0.2, Diff Path Review Brittney holley, Platelet Estimate SLT INC, Anisocytosis RARE, Macrocytosis RARE 12/21/20 16:41: Sodium 140, Potassium 3.9, Chloride 109 H, Carbon Dioxide 25.0, Anion Gap 6, BUN 9, Creatinine 0.63, Estim Creat Clear Calc 120.05, Est GFR (MDRD) Af Amer 136, Est GFR (MDRD) Non-Af 113, BUN/Creatinine Ratio 14.2, Glucose 80, Calcium 9.1, Total Bilirubin 0.80, AST 82 H, ALT 48, Alkaline Phosphatase 296 H, Total Protein 6.8, Albumin 1.9 L, Globulin 4.9 H, Albumin/Globulin Ratio 0.4 L 12/21/20 18:20: COVID-19 (JENNY) Not Detected 12/21/20 21:15: Procalcitonin 0.31 H 12/22/20 05:15: WBC 8.8, RBC 3.87 L, Hgb 11.2 L, Hct 34.8 L, MCV 89.9, MCH 28.9, MCHC 32.2, RDW Std Deviation 41.8, RDW Coeff of Jim 12.8, Plt Count 471 H, MPV 9.5 12/22/20 05:15: Sodium 139, Potassium 3.9, Chloride 109 H, Carbon Dioxide 22.0, Anion Gap 8, BUN 8, Creatinine 0.57, Estim Creat Clear Calc 132.69, Est GFR (MDRD) Af Amer 153, Est GFR (MDRD) Non-Af 126, BUN/Creatinine Ratio 14.0, Glucose 88, Calcium 8.7, Total Bilirubin 0.70, AST 64 H, ALT 43, Alkaline Phosphatase 280 H, Total Protein 6.4, Albumin 1.8 L, Globulin 4.6 H, Albumin/Globulin Ratio 0.4 L Current Medications Acetaminophen (Acetaminophen 325 Mg Tablet) 650 mg PO Q6H PRN PRN PRN Reason: Pain Score 1-10 Albuterol Sulfate (Albuterol Sulfate 18 Gm Inhaler (200 Puffs)) 2 puff INHALATION Q4H PRN PRN PRN Reason: SOB &/OR WHEEZING Aspirin (Aspirin 81 Mg Tab.Chew) 81 mg PO DAILY@2200 [facility] Dexamethasone Sodium Phosphate (Dexamethasone 10 Mg/Ml Vial) 6 mg IV Q12 JOSEF Last Admin: 12/22/20 09:45 Dose: 6 mg Documented by: Enoxaparin Sodium (Enoxaparin 40 Mg/0.4 Ml Syringe) 40 mg SC DAILY@2199 [facility] Remdesivir 100 mg/ Sodium (Chloride) 250 mls @ 125 mls/hr IV DAILY@2199 [facility]; Protocol Stop: 12/25/20 23:59 Miscellaneous Information (Inhaler, Assist Devices 1 Each Spacer) 1 each INHALATION PRN PRN PRN Reason: WITH ALBUTEROL INHALER Ondansetron HCl (Ondansetron 4 Mg/2 Ml Vial) 4 mg IV Q6H PRN PRN PRN Reason: NAUSEA/VOMITING Multivit/Folic Acid/Iron ( Vits Tablet) 1 tablet PO DAILY@2200 [facility] Sodium Chloride (0.9% Saline Lock 10 Ml Syringe) 10 ml IV Q12H PRN PRN PRN Reason: flush saline lock Last Admin: 12/22/20 09:46 Dose: 10 ml Documented by: Medical Necessity - Tobacco Use Smoking Status: Never smoker Tobacco Use: Non-smoker Assessment/Plan All Active Problems (Last Reviewed 12/21/20 @ 20:[address] Bhanu Carrillo MD) Pneumonia due to COVID-19 virus (Acute) 34 weeks gestation of (Acute) COVID-19 affecting , antepartum (Acute) Grand multiparity (Acute) H/O precipitous labor and deliveries, antepartum (Acute) Rh negative state in antepartum period (Acute) Supervision of high risk , antepartum (Acute) (Acute) AMA (advanced maternal age) multigravida 35+ (Acute) This is a 35 year-old, G 6 P4 at 35 weeks gestational age admitted for pneumonia related to COVID-19 and Pneumonia secondary to COVID-19 - No acute events overnight -Tested positive for Covid 14 days ago, but has had ongoing shortness of breath -Chest x-ray showed bilateral pulmonary infiltrates -Sats 95-96% overnight - lowest O2 sat 94% with ambulation -Pulmonology and ID consulted - patient receiving remdesivir at their recommendation -Decadron for lung maturity and symptomatic management of pneumonia -Growth ultrasound normal - 20%ile -Lovenox ordered given hypercoagulable state due to COVID-19 and -We will keep on continuous monitoring due to risks associated with maternal hypoxia -Internal medicine consulted for medical management of symptoms -Albuterol as needed for shortness of breath at 35 weeks gestation -Continuous monitoring -Growth ultrasound ordered -Cephalic -General diet -Decadron ordered for lung maturity and COVID-19 symptomatic management Multi Select Codes - Visit Charges Observation E&M Codin Subsequent observation care L2
[2020-12-22 13:38] LABS: Pathologist Review Reviewed
--- NOTE | 2020-12-22 15:10 | CON.PCM_ITS ---
Problem List (1) Pneumonia due to COVID-19 virus Status: Acute Reason for Consult: covid Consulted by: Dr. Love History of Present Illness: The patient is a 35 year old F, 38 weeks gestation, presented with sx starting 12/08, c/o congestion, dry cough. Tested (+) for covid 12/09 after was also sick. He was covid (+) as well. She had progressive cough, dyspnea, muscle aches, fatigue. No change in taste or smell, no n/v/d. Kids at home were ok. improved. She was still dyspneic, coughing, sats as low as 88% with ambulation, as low as 95% at rest. Given 5 day course of azithro with no improvement. Was starting to feel a little better in terms of aches and cough. Referred to Dr. Martinez, sent to ED, admitted on remdesivir and dex, feeling much better today. Full ROS performed and neg except as noted above. Has not gotten vaccine for covid. - Medical History Surgical History: reviewed Allergies/Adverse Reactions: Allergies No Known Allergies Allergy (Verified 12/21/20 16:27) Home Medications: Ambulatory Orders Medication Instructions Recorded multivitamin no.47-iron fum 27 1 cap PO DAILY 06/21/ mg-folate no.1 1 mg-dha 300 mg capsule Aspirin [Aspirin, Baby] 1 tablet PO DAILY 12/21/20 Robitussin 10 mg DAILY PRN PRN 12/21/20 Dexamethasone 6 mg PO DAILY #8 tablet 12/22/20 - Social History Tobacco Use: non-smoker Vital Signs Temp Pulse Resp BP Pulse Ox 97.8 F 111 H 21 H 129/79 H 97 12/22/20 12:45 12/22/20 15:05 12/21/20 18:17 12/22/20 12:45 12/22/20 15:05 Oxygen Delivery Method Room Air Weight: 94.347 kg Body Mass Index (BMI) 32.5 Microbiology Past 72 Hours 12/21/20 17:19 SARS-CoV-2 Antigen (Rapid) - Final Nasal Secretion Laboratory Tests Past 24 Hrs 12/21/20 12/21/20 12/21/20 15:15 16:41 16:41 WBC 9.0 RBC 4.09 L Hgb 12.3 Hct 37.6 MCV 91.9 MCH 30.1 MCHC 32.7 RDW Std Deviation 43.1 RDW Coeff of Jim 12.8 Plt Count 480 H MPV 9.8 Immature Gran % (Auto) DIETETIC TECHNICIAN REGISTERED Neut % (Auto) DIETETIC TECHNICIAN REGISTERED Lymph % (Auto) DIETETIC TECHNICIAN REGISTERED [place] % (Auto) DIETETIC TECHNICIAN REGISTERED Eos % (Auto) DIETETIC TECHNICIAN REGISTERED Baso % (Auto) DIETETIC TECHNICIAN REGISTERED Absolute Neuts (auto) 5.9 Absolute Lymphs (auto) 1.88 Total Counted 100 Neutrophils % (Manual) 64 Band Neutrophils % 2 Lymphocytes % (Manual) 21 Monocytes % (Manual) 6 Metamyelocytes % 3 H Myelocytes % 4 H Nucleated RBC % 0.2 Diff Path Review Reviewed Platelet Estimate SLT INC Anisocytosis RARE Macrocytosis RARE Sodium 140 Potassium 3.9 Chloride 109 H Carbon Dioxide 25.0 Anion Gap 6 BUN 9 Creatinine 0.63 Estim Creat Clear Calc 120.05 Est GFR (MDRD) Af Amer 136 Est GFR (MDRD) Non-Af 113 BUN/Creatinine Ratio 14.2 Glucose 80 Lactic Acid 1.2 Calcium 9.1 Total Bilirubin 0.80 AST 82 H ALT 48 Alkaline Phosphatase 296 H Total Protein 6.8 Albumin 1.9 L Globulin 4.9 H Albumin/Globulin Ratio 0.4 L Procalcitonin COVID-19 (JENNY) 12/21/20 12/21/20 12/22/20 18:20 21:15 05:15 WBC 8.8 RBC 3.87 L Hgb 11.2 L Hct 34.8 L MCV 89.9 MCH 28.9 MCHC 32.2 RDW Std Deviation 41.8 RDW Coeff of Jim 12.8 Plt Count 471 H MPV 9.5 Immature Gran % (Auto) Neut % (Auto) Lymph % (Auto) [place] % (Auto) Eos % (Auto) Baso % (Auto) Absolute Neuts (auto) Absolute Lymphs (auto) Total Counted Neutrophils % (Manual) Band Neutrophils % Lymphocytes % (Manual) Monocytes % (Manual) Metamyelocytes % Myelocytes % Nucleated RBC % Diff Path Review Platelet Estimate Anisocytosis Macrocytosis Sodium Potassium Chloride Carbon Dioxide Anion Gap BUN Creatinine Estim Creat Clear Calc Est GFR (MDRD) Af Amer Est GFR (MDRD) Non-Af BUN/Creatinine Ratio Glucose Lactic Acid Calcium Total Bilirubin AST ALT Alkaline Phosphatase Total Protein Albumin Globulin Albumin/Globulin Ratio Procalcitonin 0.31 H COVID-19 (JENNY) Not Detected 12/22/20 05:15 WBC RBC Hgb Hct MCV MCH MCHC RDW Std Deviation RDW Coeff of Jim Plt Count MPV Immature Gran % (Auto) Neut % (Auto) Lymph % (Auto) [place] % (Auto) Eos % (Auto) Baso % (Auto) Absolute Neuts (auto) Absolute Lymphs (auto) Total Counted Neutrophils % (Manual) Band Neutrophils % Lymphocytes % (Manual) Monocytes % (Manual) Metamyelocytes % Myelocytes % Nucleated RBC % Diff Path Review Platelet Estimate Anisocytosis Macrocytosis Sodium 139 Potassium 3.9 Chloride 109 H Carbon Dioxide 22.0 Anion Gap 8 BUN 8 Creatinine 0.57 Estim Creat Clear Calc 132.69 Est GFR (MDRD) Af Amer 153 Est GFR (MDRD) Non-Af 126 BUN/Creatinine Ratio 14.0 Glucose 88 Lactic Acid Calcium 8.7 Total Bilirubin 0.70 AST 64 H ALT 43 Alkaline Phosphatase 280 H Total Protein 6.4 Albumin 1.8 L Globulin 4.6 H Albumin/Globulin Ratio 0.4 L Procalcitonin COVID-19 (JENNY) - Other Studies Radiology: [] reviewed Other Studies: [] Route of nutrition/ use of supplements: [] Nutritional Intake: [] IV Site: [] Gutiérrez Catheter: [] - Physical Exam General: Alert, Oriented x3, Cooperative, No apparent distress HEENT: Atraumatic, PERRLA, EOMI Neck: Supple, No Nodes Lungs: Clear to auscultation, Diminished Cardiovascular: Regular rate, Regular Rhythm Abdomen: Soft, Non Tender, Gravid Extremities: No edema Skin: No rashes IV Site: Peripheral, without redness Musculoskeletal: No Tenderness to Palpation of Joints or Extremities Neurological: Cranial nerves II-XII grossly intact - Assessment/Plan Antibiotics: [] Assessment/Plan: [] Active and Suspected Problems (Last Reviewed 12/21/20 @ 20:[address] Bhanu Carrillo MD) Pneumonia due to COVID-19 virus (Acute) 34 weeks gestation of (Acute) COVID test order 12/13/20 COVID-19 affecting , antepartum (Acute) Needs Baby ASA and growth US- 12/21/20 patient being admitted for IV antiviral- MFM being consulted Grand multiparity (Acute) H/O precipitous labor and deliveries, antepartum (Acute) Rh negative state in antepartum period (Acute) Rhogam PRN and at 28 weeks Supervision of high risk , antepartum (Acute) DAVID 01/22/21 PC: Fantasma Devine, Cabrera(Shaw), Bhanu Spouse: Cabrera(Shaw) (Acute) declines genetic, carrier and NTD, anatomy nl AMA (advanced maternal age) multigravida 35+ (Acute) growth scan at 36 weeks covid with dyspnea, mild hypoxia - sx started 12/08, (+) 12/09. Much improved sx. Satting well with ambulation here. Ok for d/c home to quarantine until 12/28, 10 days total of dex. Recommended vaccination for covid once she is out of quarantine, she might wait until after delivery. Will follow as needed, d/w Dr. Love and Dr. Martinez, thank you
--- NOTE | 2020-12-22 15:38 | PCM.HOSP.N ---
Hospitalist Note Discussed case with bedside nurse. Patient's oxygen saturations are 98% on room air. They will ambulate her to see if she desats with ambulation. I discussed the case also with infectious disease and he will review the information and make a decision based on continued remdesivir. At this point given the fact that she has no further medical issues we will sign off please call with any questions or concerns.
--- NOTE | 2020-12-22 17:15 | NURSING ---
Dr Love in seeing pt at this time.
--- NOTE | 2020-12-22 17:23 | PCM.PN.BLA ---
Progress Note Patient discussed with infectious disease. Plan for discharge to home today. No indication to continue antiviral. Plan additional 6 days of steroids. Will give BMZ IM tonight to complete corticosteroid course for lung maturity. Patient to call office on Friday to schedule follow-up next week. STROKE Vital Signs/Narrative: Vital Signs Pulse Pulse Ox 12/22/20 15:20 108 H 97 12/22/20 15:15 106 H 96 12/22/20 15:10 111 H 98 12/22/20 15:05 111 H 97 12/22/20 15:00 105 H 98 12/22/20 14:55 101 H 97 12/22/20 14:50 114 H 98 12/22/20 14:45 111 H 97 12/22/20 14:40 110 H 96 12/22/20 14:35 120 H 95 12/22/20 14:32 122 H 92 12/22/20 14:30 124 H 96 12/22/20 14:25 120 H 96 12/22/20 14:21 119 H 94 12/22/20 14:19 110 H 97 12/22/20 14:14 109 H 97 12/22/20 14:09 110 H 97 12/22/20 14:04 103 H 98 12/22/20 14:01 103 H 96 12/22/20 13:56 98 97 12/22/20 13:51 104 H 96 12/22/20 13:46 102 H 97 12/22/20 13:41 104 H 96 12/22/20 13:27 99 96
--- NOTE | 2020-12-22 17:24 | DCINST_ITS ---
- Discharge Diagnoses Current Active Problems: Current Active and Chronic Problems (Last Reviewed 12/21/20 @ 20:[address] Bhanu Carrillo MD) Pneumonia due to COVID-19 virus (Acute) 34 weeks gestation of (Acute) COVID test order 12/13/20 COVID-19 affecting , antepartum (Acute) Needs Baby ASA and growth US- 12/21/20 patient being admitted for IV antiviral- MFM being consulted Grand multiparity (Acute) H/O precipitous labor and deliveries, antepartum (Acute) Rh negative state in antepartum period (Acute) Rhogam PRN and at 28 weeks Supervision of high risk , antepartum (Acute) DAVID 01/22/21 PC: Fantasma Devine, Cabrera(Shaw), Bhanu Spouse: Cabrera(Shaw) (Acute) declines genetic, carrier and NTD, anatomy nl AMA (advanced maternal age) multigravida 35+ (Acute) growth scan at 36 weeks You will use the following diet at home:: Regular Discharge Activity: Return to Normal Activity Call your doctor if you observe: Fever of 101 or Higher, Shortness of breath, Dizziness, Fainting spells Allergies/Adverse Reactions: Allergies No Known Allergies Allergy (Verified 12/21/20 16:27) Medications to take at Discharge multivitamin no.47-iron fum 27 mg-folate no.1 1 mg-dha 300 mg capsule 1 cap PO DAILY 06/21/20 Aspirin [Aspirin, Baby] 1 tablet PO DAILY 12/21/20 Robitussin 10 mg DAILY PRN PRN 12/21/20 Albuterol Sulfate [Albuterol Sulfate HFA] 2 puff INHALATION Q4H PRN PRN inhaler 12/22/20 Dexamethasone 6 mg PO DAILY #8 tablet 12/22/20 The following prescriptions were given: Dexamethasone 6 mg PO DAILY #8 tablet Transmission Status: Received by [facility]ACK #[id number] Primary Care Physician: Care Physician,No Primary [Primary Care Provider] - Test Results: Test results from this visit will be discussed in further detail at your follow- up appointment, if applicable.
--- NOTE | 2020-12-22 17:27 | PCM.DC.SUM ---
Discharge Date and Diagnosis - Problem List Patient Problems: Active and Suspected Problems (Last Reviewed 12/21/20 @ 20:[address] Bhanu Carrillo MD) Pneumonia due to COVID-19 virus (Acute) 34 weeks gestation of (Acute) COVID test order 12/13/20 COVID-19 affecting , antepartum (Acute) Needs Baby ASA and growth US- 12/21/20 patient being admitted for IV antiviral- MFM being consulted Grand multiparity (Acute) H/O precipitous labor and deliveries, antepartum (Acute) Rh negative state in antepartum period (Acute) Rhogam PRN and at 28 weeks Supervision of high risk , antepartum (Acute) DAVID 01/22/21 PC: Fantasma Devine Ioan(John)Bhanu Spouse: Johnny) (Acute) declines genetic, carrier and NTD, anatomy nl AMA (advanced maternal age) multigravida 35+ (Acute) growth scan at 36 weeks Date of Admission: 12/21/20 Date of Discharge: 12/22/20 - Primary Discharge Diagnosis Acute Problems: Active Problems (Last Reviewed 12/21/20 @ 20:[address] Bhanu Carrillo MD) Pneumonia due to COVID-19 virus (Acute) 34 weeks gestation of (Acute) COVID test order 12/13/20 COVID-19 affecting , antepartum (Acute) Needs Baby ASA and growth US- 12/21/20 patient being admitted for IV antiviral- MFM being consulted Grand multiparity (Acute) H/O precipitous labor and deliveries, antepartum (Acute) Rh negative state in antepartum period (Acute) Rhogam PRN and at 28 weeks Supervision of high risk , antepartum (Acute) DAVID 01/22/21 PC: Fantasma Devine Ioan(John)Bhanu Spouse: CabreraPeter) (Acute) declines genetic, carrier and NTD, anatomy nl AMA (advanced maternal age) multigravida 35+ (Acute) growth scan at 36 weeks Hospital Course and Treatment Internal medicine, Infectious disease, pulmonology Operations: None Procedures: None Summary of Care Provided: The patient is a 35 year old F at 35 weeks who was admitted for symptomatic management of COVID-19 and . Patient was initially diagnosed with COVID-19 approximately 14 days ago. She had a chest x-ray done as an outpatient that showed bilateral pulmonary infiltrates and Dr. Martinez from pulmonology recommended inpatient management. Patient was given IV Decadron and given 1 dose of remdesivir. Symptoms improved significantly. Patient maintained oxygen saturation greater than 95%. Infectious disease also consulted and felt that patient was appropriate for outpatient management with p.o. corticosteroids. Patient discharged home in stable condition on 12/22. Patient Problems: Active and Suspected Problems (Last Reviewed 12/21/20 @ 20:[address] Bhanu Carrillo MD) Pneumonia due to COVID-19 virus (Acute) 34 weeks gestation of (Acute) COVID test order 12/13/20 COVID-19 affecting , antepartum (Acute) Needs Baby ASA and growth US- 12/21/20 patient being admitted for IV antiviral- MFM being consulted Grand multiparity (Acute) H/O precipitous labor and deliveries, antepartum (Acute) Rh negative state in antepartum period (Acute) Rhogam PRN and at 28 weeks Supervision of high risk , antepartum (Acute) DAVID 01/22/21 PC: Fantasma Devine, Cabrera(Shaw)Bhanu Spouse: Cabrera(Shaw) (Acute) declines genetic, carrier and NTD, anatomy nl AMA (advanced maternal age) multigravida 35+ (Acute) growth scan at 36 weeks - Physical Exam Vitals/I&O's: Vital Signs Temp Pulse Resp BP Pulse Ox 97.8 F 108 H 21 H 129/79 H 97 12/22/20 12:45 12/22/20 15:20 12/21/20 18:17 12/22/20 12:45 12/22/20 15:20 Oxygen Delivery Method Room Air Weight: 208 lb Body Mass Index (BMI) 32.5 Intake and Output for Last 24 Hours 12/20/20 12/21/20 12/22/20 23:59 23:59 23:59 Intake Total 450 / 450 650 / 650 Balance 450 / 450 650 / 650 Microbiology Past 72 Hours 12/21/20 17:19 Nasal Secretion SARS-CoV-2 Antigen (Rapid) - Final Laboratory Results 12/21/20 15:15: Lactic Acid 1.2 12/21/20 16:41: Immature Gran % (Auto) INDUSTRIAL HYGIENE ENGINEER, Neut % (Auto) INDUSTRIAL HYGIENE ENGINEER, Lymph % (Auto) INDUSTRIAL HYGIENE ENGINEER, [place] % (Auto) INDUSTRIAL HYGIENE ENGINEER, Eos % (Auto) INDUSTRIAL HYGIENE ENGINEER, Baso % (Auto) INDUSTRIAL HYGIENE ENGINEER, Absolute Neuts (auto) 5.9, Absolute Lymphs (auto) 1.88, Total Counted 100, Neutrophils % (Manual) 64, Band Neutrophils % 2, Lymphocytes % (Manual) 21, Monocytes % (Manual) 6, Metamyelocytes % 3 H, Myelocytes % 4 H, Diff Path Review Reviewed, Platelet Estimate SLT INC, Anisocytosis RARE, Macrocytosis RARE 12/21/20 16:41: Sodium 140, Potassium 3.9, Chloride 109 H, Carbon Dioxide 25.0, Anion Gap 6, BUN 9, Creatinine 0.63, Estim Creat Clear Calc 120.05, Est GFR (MDRD) Af Amer 136, Est GFR (MDRD) Non-Af 113, BUN/Creatinine Ratio 14.2, Glucose 80, Calcium 9.1, Total Bilirubin 0.80, AST 82 H, ALT 48, Alkaline Phosphatase 296 H, Total Protein 6.8, Albumin 1.9 L, Globulin 4.9 H, Albumin/Globulin Ratio 0.4 L 12/21/20 18:20: COVID-19 (JENNY) Not Detected 12/21/20 21:15: Procalcitonin 0.31 H 12/22/20 05:15: WBC 8.8, RBC 3.87 L, Hgb 11.2 L, Hct 34.8 L, MCV 89.9, MCH 28.9, MCHC 32.2, RDW Std Deviation 41.8, RDW Coeff of Jim 12.8, Plt Count 471 H, MPV 9.5 12/22/20 05:15: Sodium 139, Potassium 3.9, Chloride 109 H, Carbon Dioxide 22.0, Anion Gap 8, BUN 8, Creatinine 0.57, Estim Creat Clear Calc 132.69, Est GFR (MDRD) Af Amer 153, Est GFR (MDRD) Non-Af 126, BUN/Creatinine Ratio 14.0, Glucose 88, Calcium 8.7, Total Bilirubin 0.70, AST 64 H, ALT 43, Alkaline Phosphatase 280 H, Total Protein 6.4, Albumin 1.8 L, Globulin 4.6 H, Albumin/Globulin Ratio 0.4 L Current Medications Acetaminophen (Acetaminophen 325 Mg Tablet) 650 mg PO Q6H PRN PRN PRN Reason: Pain Score 1-10 Albuterol Sulfate (Albuterol Sulfate 18 Gm Inhaler (200 Puffs)) 2 puff INHALATION Q4H PRN PRN PRN Reason: SOB &/OR WHEEZING Aspirin (Aspirin 81 Mg Tab.Chew) 81 mg PO DAILY@2200 [facility] Enoxaparin Sodium (Enoxaparin 40 Mg/0.4 Ml Syringe) 40 mg SC DAILY@2200 [facility] Miscellaneous Information (Inhaler, Assist Devices 1 Each Spacer) 1 each INHALATION PRN PRN PRN Reason: WITH ALBUTEROL INHALER Ondansetron HCl (Ondansetron 4 Mg/2 Ml Vial) 4 mg IV Q6H PRN PRN PRN Reason: NAUSEA/VOMITING Multivit/Folic Acid/Iron ( Vits Tablet) 1 tablet PO DAILY@2200 [facility] Sodium Chloride (0.9% Saline Lock 10 Ml Syringe) 10 ml IV Q12H PRN PRN PRN Reason: flush saline lock Last Admin: 12/22/20 09:46 Dose: 10 ml Documented by: Discharge Activity: Return to Normal Activity Call your doctor if you observe: Fever of 101 or Higher, Shortness of breath, Dizziness, Fainting spells Home Medications: Medications to take at Discharge multivitamin no.47-iron fum 27 mg-folate no.1 1 mg-dha 300 mg capsule 1 cap PO DAILY 06/21/20 Aspirin [Aspirin, Baby] 1 tablet PO DAILY 12/21/20 Robitussin 10 mg DAILY PRN PRN 12/21/20 Albuterol Sulfate [Albuterol Sulfate HFA] 2 puff INHALATION Q4H PRN PRN inhaler 12/22/20 Dexamethasone 6 mg PO DAILY #8 tablet 12/22/20 Following Prescriptions Were Given to Patient: Dexamethasone 6 mg PO DAILY #8 tablet Transmission Status: Received by DEBORA STACK #[id number] Primary Care Physician: Care Physician,No Primary [Primary Care Provider] - Medical Necessity - Tobacco Use Smoking Status: Never smoker Tobacco Use: Non-smoker Meaningful Use Info Meaningful Use Diagnoses (Choose all that apply): None applicable OBSV E&M: 08585 Observation care discharge
[2020-12-22] MEDS: Betamethasone/Betamethasone 30 MG/5 ML Vial 12 MG IM (19:47)
== END 2020-12-22 19:55 | disposition home or self-care (01) | DRG 831 ==
LOC: ED 17:30 → WP 18:20
PROVIDERS: Hospitalist; Admitting Provider Obstetrics & Gynecology; Emergency Provider Emergency Medicine; Visit Provider Internal Medicine
DX: O98.513 Other viral diseases complicating pregnancy, third trimester (principal); U07.1 COVID-19; J12.82 Pneumonia due to coronavirus disease 2019; O99.113 Other diseases of the blood and blood-forming organs and certain disorders involving the immune mechanism complicating pregnancy, third trimester; O99.513 Diseases of the respiratory system complicating pregnancy, third trimester; R09.02 Hypoxemia; R06.89 Other abnormalities of breathing; O09.523 Supervision of elderly multigravida, third trimester; Z79.82 Long term (current) use of aspirin; Z3A.35 35 weeks gestation of pregnancy
CPT/HCPCS: 59025; 59050; 76816; 80053; 83605; 84145; 85025; 85027; 87040; 87426; 87635; 99285; J7050; A4216; J0702; U0002

== ENCOUNTER → 2020-12-28 | Outpatient (CLI) | payer OTHER, SELFPAY ==
[2020-12-28 15:46] VITALS: BMI 32.0
== END | disposition home or self-care (01) ==
LOC: LABSPEC 16:46
PROVIDERS: Referring Provider Obstetrics & Gynecology; Visit Provider Obstetrics & Gynecology
DX: O09.90 Supervision of high risk pregnancy, unspecified, unspecified trimester (principal); Z3A.00 Weeks of gestation of pregnancy not specified
CPT/HCPCS: 87081

== ENCOUNTER → 2020-12-29 12:26 | Outpatient (CLI) | payer OTHER, SELFPAY ==
[2020-11-14 15:08] VITALS: BMI 33.2
[2020-12-28 15:46] VITALS: BMI 32.0
--- NOTE | 2020-12-29 12:27 | US_ITS ---
STUDY: SECOND AND THIRD TRIMESTER OBSTETRICAL ULTRASOUND - LIMITED REASON FOR EXAM: Female, 35 years old ZACHARIAH LMP: 04/17/2020. PRIOR ULTRASOUND: Comparison is made with prior examination dated 12/21/2020. TECHNIQUE: Transabdominal TECHNICAL QUALITY: Adequate. FINDINGS: There is a single intrauterine fetus. The fetus is in a cephalic presentation. There is demonstrated cardiac activity with a heart rate of 125 bpm. There is a normal amniotic fluid volume. The largest amniotic fluid pocket measures 3.0 cm. The amniotic fluid index (ZACHARIAH) is 10.1 cm. The placenta is fundal in location. There are Grade 2 placental changes. BIOMETRY: Age by LMP: 36 weeks, 4 days. DAVID by LMP: 01/22/2021. US/OB Limited (No Biometrics) IMPRESSION: Normal amniotic fluid index. Electronically Signed: Prateek Leon MD at 14:48 EDT , Service support ,
== END ==
PROVIDERS: Referring Provider Nurse Practitioner Women's Health; Visit Provider Nurse Practitioner Women's Health
DX: O98.513 Other viral diseases complicating pregnancy, third trimester (principal); O99.513 Diseases of the respiratory system complicating pregnancy, third trimester; U07.1 COVID-19; J12.82 Pneumonia due to coronavirus disease 2019; Z3A.36 36 weeks gestation of pregnancy
CPT/HCPCS: 76815

== ENCOUNTER → 2021-01-04 16:34 | Outpatient (CLI) | payer OTHER, SELFPAY ==
[2020-12-28 15:46] VITALS: BMI 32.0
[2021-01-04 15:42] VITALS: BMI 32.0
--- NOTE | 2021-01-04 16:40 | US_ITS ---
STUDY: SECOND AND THIRD TRIMESTER OBSTETRICAL ULTRASOUND - LIMITED REASON FOR EXAM: Female, 35 years old ZACHARIAH LMP: 04/17/2020. PRIOR ULTRASOUND: Comparison is made with prior study dated 12/29/2020 TECHNIQUE: Transabdominal TECHNICAL QUALITY: Adequate. FINDINGS: There is a single intrauterine fetus. The fetus is in a cephalic presentation. There is demonstrated cardiac activity with a heart rate of 139 bpm. There is a normal amniotic fluid volume. The largest amniotic fluid pocket measures 5.08 cm. The amniotic fluid index (Z[place]ARIAH) is 15.3 cm. The placenta is fundal in location. There are Grade 3 placental changes. BIOMETRY: Age by LMP: 37 weeks, 3 days. DAVID by LMP: 01/22/2021. US/OB Limited (No Biometrics) IMPRESSION: Normal amniotic fluid index. Electronically Signed: Prateek Leon MD at 12:26 EDT , Service support ,
== END ==
PROVIDERS: Referring Provider Obstetrics & Gynecology; Visit Provider Obstetrics & Gynecology
DX: O98.519 Other viral diseases complicating pregnancy, unspecified trimester (principal); U07.1 COVID-19; Z3A.00 Weeks of gestation of pregnancy not specified
CPT/HCPCS: 76815

== ENCOUNTER → 2021-01-10 13:47 | Outpatient (CLI) | payer OTHER, SELFPAY ==
[2020-12-28 15:46] VITALS: BMI 32.0
[2021-01-04 15:42] VITALS: BMI 32.0
--- NOTE | 2021-01-10 13:52 | US_ITS ---
STUDY: SECOND AND THIRD TRIMESTER OBSTETRICAL ULTRASOUND - LIMITED REASON FOR EXAM: Female, 35 years old ZACHARIAH . History of Covid during . LMP: 04/17/2020. PRIOR ULTRASOUND: Comparison is made with prior examination dated 01/04/2021. TECHNIQUE: Transabdominal TECHNICAL QUALITY: Adequate. FINDINGS: There is a single intrauterine fetus. The fetus is in a cephalic presentation. There is demonstrated cardiac activity with a heart rate of 133 bpm. There is a normal amniotic fluid volume. The largest amniotic fluid pocket measures 4.5 cm. The amniotic fluid index (ZACHARIAH) is 12.9 cm. The placenta is fundal in location. There are Grade 3 placental changes. BIOMETRY: Age by LMP: 38 weeks, 2 days. DAVID by LMP: 01/22/2021. age by prior US: 30 weeks, 2 days. DAVID by prior US: 01/22/2021. US/OB Limited (No Biometrics) IMPRESSION: Normal amniotic fluid. Electronically Signed: Prateek Leon MD at 15:38 EDT , Service support ,
== END ==
PROVIDERS: Referring Provider Obstetrics & Gynecology; Visit Provider Obstetrics & Gynecology
DX: O98.519 Other viral diseases complicating pregnancy, unspecified trimester (principal); U07.1 COVID-19; Z3A.00 Weeks of gestation of pregnancy not specified
CPT/HCPCS: 76815

== ENCOUNTER → 2021-01-18 16:32 | Outpatient (CLI) | payer OTHER, SELFPAY ==
[2020-12-28 15:46] VITALS: BMI 32.0
[2021-01-18 15:46] VITALS: BMI 32.0
--- NOTE | 2021-01-18 16:36 | US_ITS ---
STUDY: SECOND AND THIRD TRIMESTER OBSTETRICAL ULTRASOUND - LIMITED REASON FOR EXAM: Female, 35 years old ZACHARIAH. LMP: 04/17/2020. PRIOR ULTRASOUND: 12/21/2020, 12/29/2020, 01/04/2021 and 01/10/2021 TECHNIQUE: Transabdominal TECHNICAL QUALITY: Adequate. FINDINGS: There is a single intrauterine fetus. The fetus is in a cephalic presentation. There is demonstrated cardiac activity with a heart rate of 147 bpm. There is a normal amniotic fluid volume. The largest amniotic fluid pocket measures 4.842 cm. The amniotic fluid index (ZACHARIAH) is 15.23 cm. The placenta is fundal and posterior and low-lying. There are Grade 3 placental changes. The cervix is obscured. Age by LMP: 39 weeks, 3 days. DAVID by LMP: 01/22/2021. age by prior US: 40 weeks, 0 days. DAVID by prior US: 01/18/2021. US/OB Limited (No Biometrics) IMPRESSION: 1. Limited examination for ZACHARIAH. The ZACHARIAH measures 15.23 cm. 2. Live single intrauterine in cephalic presentation. 3. heart rate of 147 bpm. 4. Posterior and fundal grade 3 placenta. Electronically Signed: Jorge David DO at 20:05 EDT Tel [phone], Service support ,
== END ==
PROVIDERS: Referring Provider Obstetrics & Gynecology; Visit Provider Obstetrics & Gynecology
DX: O98.519 Other viral diseases complicating pregnancy, unspecified trimester (principal); U07.1 COVID-19; Z3A.00 Weeks of gestation of pregnancy not specified
CPT/HCPCS: 76815

== ENCOUNTER → 2021-01-25 16:29 | Outpatient (CLI) | payer OTHER, SELFPAY ==
[2020-12-28 15:46] VITALS: BMI 32.0
[2021-01-25 15:29] VITALS: BMI 32.0
--- NOTE | 2021-01-25 16:33 | US_ITS ---
STUDY: SECOND AND THIRD TRIMESTER OBSTETRICAL ULTRASOUND - LIMITED REASON FOR EXAM: Female, 35 years old ZACHARIAH. LMP: 04/17/2020 PRIOR ULTRASOUND: 12/21/2020, 12/29/2020, 01/04/2021, 01/10/2021 and 01/18/2021 TECHNIQUE: Transabdominal TECHNICAL QUALITY: Adequate. FINDINGS: There is a single intrauterine fetus. The fetus is in a cephalic presentation. There is demonstrated cardiac activity with a heart rate of 132 bpm. There is a normal amniotic fluid volume. The largest amniotic fluid pocket measures 4.96 cm. The amniotic fluid index (ZACHARIAH) is 11.74 cm. The placenta is fundal in location. There are Grade 3 placental changes. The cervix is obscured Age by LMP: 40 weeks, 3 days. DAVID by LMP: 01/22/2021. age by prior US: 41 weeks, 0 days. DAVID by prior US: 01/18/2021. US/OB Limited (No Biometrics) IMPRESSION: 1. Limited study for ZACHARIAH. The ZACHARIAH is 11.74 cm. 2. Live single intrauterine at 41 weeks, 0 days by initial ultrasound. 3. heart rate of 132 bpm. 4. VERTEX presentation. 5. Fundal grade 3 placenta. Electronically Signed: Jorge David DO at 19:54 EDT Tel [phone], Service support ,
== END ==
PROVIDERS: Referring Provider Obstetrics & Gynecology; Visit Provider Obstetrics & Gynecology
DX: O98.519 Other viral diseases complicating pregnancy, unspecified trimester (principal); U07.1 COVID-19
CPT/HCPCS: 76815

== ENCOUNTER 2021-01-26 03:30 | Inpatient (IN) | payer OTHER, SELFPAY ==
[2021-01-25 15:29] VITALS: BMI 32.0
[2021-01-26] VITALS (23 sets, daily range): BP systolic 105–136; BP diastolic 56–79; PULSE 66–100; RESP 16; TEMP 36.2–37.1; O2SAT 97–100; BMI 32.5
[2021-01-26] MEDS: Lactated Ringers 1,000 ML 999 ML IV (03:23)
[2021-01-26 03:44] LABS: Absolute Neutrophil Count 6.4 X10^3/uL (2.0-7.7); Basophil# 0.07 X10^3/uL; Basophil% 0.7 % (0-1); Eosinophils% 1.9 % (0-5); Hematocrit 36.3 % (37-47); Lymphocyte % 25.2 % (19-41); Mean Corp Hgb Conc 33.1 g/dL (32-36); Mean Corpuscular Hgb 29.9 pg (27.0-32.0); Mean Corpuscular Volume 90.5 fL (81-99); Mean Platelet Vol. 10.1 fl (6.2-12.0); Monocyte# 0.91 X10^3/uL; Monocyte% 8.8 % (0-10); NRBC Flagged by Analyzer 0 % (0-5); Neutrophil # 6.42 X10^3/uL (2.7-7.7); Neutrophil % 62.4 % (47-70); Platelet Count 344 K/mm3 (150-450); RBC Distribution Width SD 46.4 fl (35.1-43.9); Red Blood Count 4.01 M/mm3 (4.2-5.4); White Blood Count 10.3 K/mm3 (4.4-11.0)
[2021-01-26] MEDS: Oxytocin 10 UNITS/ML Vial IM (04:01)
--- NOTE | 2021-01-26 04:20 | HP.PCM.OB_ITS ---
HPI - General General Date of Admission: 01/26/21 HPI Narrative ANJU STEPHENSON, is a 35 F at 40 weeks gestation who presents in active labor Maternal Data Information DAVID Calculator 2 Estimated Delivery Date Method Current WG Current Estimate 01/22/21 LMP (Certain) 40w 4d PFSH Medical History COVID-19 affecting in third trimester COVID-19 affecting in third trimester No significant medical problems Home Medications multivitamin no.47-iron fum 27 mg-folate no.1 1 mg-dha 300 mg capsule 1 cap PO DAILY 06/21/20 [History Last Taken Unknown] aspirin 1 tablet PO DAILY 12/21/20 [History Last Taken 01/25/21 23:00] albuterol sulfate 2 puff INHALATION Q4H PRN PRN inhaler 12/22/20 [Rx Last Taken Unknown] dexamethasone 6 mg PO DAILY #8 tablet 12/22/20 [Rx Last Taken Unknown] famotidine [Pepcid] 20 mg PO DAILY 01/26/21 [History Last Taken 01/25/21 23:00] Allergy/AdvReac Type Severity Reaction Status Date / Time No Known Allergies Allergy Verified 01/26/21 03:09 Family History Grandmother Cancer ovarian Grandmother Cancer uterine Surgical History H/O wisdom tooth extraction Social History adopted: No household members: family housing: house number of children: 4 current occupational status: employed current occupation: [employer] Smoking Status: Never smoker second hand exposure: No alcohol intake: current alcohol intake frequency: holidays/special occasions only details: not while substance use type: does not use seatbelt use: always do you feel safe at home: Yes additional social history: - Cabrear (Shaw) History 6 Elective abortions Hx Para 4 Spontaneous abortions 1 Hx # Term Pregnancies Ectopic pregnancies Hx # Pregnancies Multiple births # of living children 4 Past Pregnancies Del. Date Name GA/Weeks Outcome Route Bth Weight Gen Labor Lgth Anesthesia Del Locatn Provider FOB Unknown 2008- Serafima 40 live - full term 7lbs Fe male 12 hours epidural [place] Unknown 2010- Ecaterina 39 live - full term 7lbs F emale 40 minutes none [place] Unknown 2012- Cabrera 39 live - full term 8lbs Male 2 hours none [place] Unknown 2015- Bhanu 40 live - full term 8lbs Male 1 hour none [place] Delivery Date: No complications Deepti Patel Delivery Date: precipitous delivery had baby in ER did not make it up to LD; + CONE test had to get Rhogam again Deepti Patel Delivery Date: precipitous delivery Deepti Patel Delivery Date: precipitous delivery Deepti Patel Visit Details Expected Delivery Route/Plan Labor Preferences- CB/BF classes: no labor support person: Cabrera labor intervention preferences: open to standard interventions pain management options preferred: open to epidural, but planning natural cut cord/dad catch: cord : [] PP control planned: [] discussed possible routes of delivery and associated risks: [] special requests: [] Plans flu vaccine: yes tdap vaccine: yes rhogam: yes LARC form signed: yes movement and labor precautions reviewed. Problem list reviewed and updated with the most current plan of care details and appropriate orders placed. Relevant counseling for the gestational age provided. Continue routine care and follow up unless otherwise noted in visit notes/problem list details OB Flowsheet Initial Weight: 176 lb Date -?-?-?-?-?-?-?-?-?-?-?-?- EGA Weight BP Urine Prot -?-?--?-?-?-?-?-?-?-?-?-?- Glucose FHR FuHt Pres Dilation -?-?-?-?-?-?-?-?--?-?-?-?- Effaced St Visit Note 07/31/20 -?-?-?-?-?-?-?-?-?-?-?-?- 15w 0d 181 lb 2 oz (+5 lb 2 oz) 120/60 Negative -?-?-?-?-?-?-?-?-?-?-?-?- Negative 155 -?-?-?-?-?-?-?-?-?-?-?-?- GP - US at last visit consistent with LMP. No cramping or bleeding. Anatomy scan ordered. 08/28/20 -?-?-?-?-?-?-?-?-?-?-?-?- 19w 0d 190 lb (+14 lb) 122/72 Negative -?-?-?-?--?-?-?-?-?-?-?-?- Negative 155 -?-?-?-?-?-?-?-?-?-?-?-?- GP - no cramping or bleeding. Anatomy scan scheduled for next week. Undecided on if finding out gender. 09/27/20 -?-?-?-?-?-?-?-?-?-?-?-?- 23w 2d 198 lb 2 oz (+22 lb 2 oz) 114/66 Negative -?-?-?-?-?-?-?-?-?-?-?-?- Negative 155 23 -?-?-?-?-?-?-?-?-?-?-?-?- GP - no ctx, LOF , VB, DFM. GCT and rhogam at next visit. 10/25/20 -?-?-?-?-?-?-?-?-?-?-?-?- 27w 2d 201 lb 2 oz (+25 lb 2 oz) 120/68 Negative -?-?-?-?-?-?-?-?-?-?-?-?- Negative 145 27 -?-?-?-?-?-?-?-?-?-?-?-?- GP - no LOF, VB, DFM, ctx. Will do GCT and 28w labs after 28w so can get rhogam. 11/01/20 -?-?-?-?-?-?-?-?-?-?-?-?- 28w 2d 206 lb 6 oz (+30 lb 6 oz) -?-?-?-?-?-?-?-?-?-?-?-?- -?-?-?-?-?-?-?-?-?-?-?-?- GP - RN visit fo r rhogam 11/14/20 -?-?-?-?-?-?-?-?-?-?-?-?- 30w 1d 212 lb (+36 lb) 118/60 Trace -?-?-?-?-?-?-?-?-?-?-?-?- Negative 148 30 -?-?-?-?-?-?-?-?-?-?-?-?- MH- NO Vb, LOF. Good FM. Larc. Ordered 36wk growth US 11/29/20 -?-?-?-?-?-?-?-?-?-?-?-?- 32w 2d 210 lb (+34 lb) 130/70 Negative -?-?-?-?-?-?-?-?-?-?-?-?- Negative 135 32 -?-?-?-?-?-?-?-?-?-?-?--?- GP - no LOF, VB, DFM, ctx. 12/28/20 -?-?-?-?-?-?-?-?-?-?-?-?- 36w 3d 204 lb 8 oz (+28 lb 8 oz) 124/74 Negative -?--?-?-?-?-?-?-?-?-?-?-?- Negative 150 36 0 -?-?-?-?-?-?-?-?-?-?-?-?- GP - no LOF, VB, DFM, ctx. Admitted last weekend due to COVID and given steroids. Feeling better. Plan weekly testing. Discussed IOL at 39-40 weeks, but would prefer to await spontaneous labor if testing reassuring. 01/04/21 -?-?-?-?-?-?-?-?-?-?-?-?- 37w 3d 207 lb (+31 lb) 130/66 -?-?-?-?-?-?-?-?-?-?-?-?- 135 -?-?-?-?-?-?-?-?-?-?-?-?- SM- no vb, lof g ood fm no regular ctx 01/10/21 -?-?-?-?-?-?-?-?-?-?-?-?- 38w 2d 209 lb 4 oz (+33 lb 4 oz) 132/62 Negative -?-?-?-?-?-?-?-?-?-?-?-?- Negative 120 2 -?-?-?-?--?-?-?-?-?-?-?-?- 50 -1 GP - no LO F, VB, DFM, ctx. Discussed labor preferences. NST reactive. 01/18/21 -?-?-?-?-?-?-?-?-?-?-?-?- 39w 3d 212 lb 8 oz (+36 lb 8 oz) 138/80 Negative -?-?-?-?-?-?-?-?-?-?-?-?- Negative 130 39 Cephalic 3 -?-?-?-?-?-?-?-?-?-?-?-?- 60 -1 GP - no LO F, VB, DFM, ctx. Membranes swept. Discussed IOL vs. expectant management. Given reassuring testing and multiparity, plan expectant management until next visit. If no labor, will discuss IOL. 01/25/21 -?-?-?-?-?-?-?-?-?-?-?-?- 40w 3d 209 lb (+33 lb) 112/78 Negative -?-?-?-?-?-?-?-?-?-?-?-?- Negative 120 -?-?-?-?-?-?-?-?-?-?-?-?- SM- no vb lof go od fm no regular ctx, burt at 4:30. membranes swept 01/26/21 -?-?-?-?-?-?-?-?-?-?-?-?- 40w 4d 208 lb (+32 lb) 135/75 132/64 -?-?-?-?-?-?-?-?-?-?-?-?- -?-?-?-?-?-?-?-?-?-?-?-?- GP - admitted in active labor ROS Eyes Eyes: Reports systems reviewed and no addt'l complaints, except as documented ENT HEENT: Reports systems reviewed and no addt'l complaints, except as documented Cardiovascular Cardiovascular: Reports systems reviewed and no addt'l complaints, except as documented Respiratory/Chest Respiratory/Chest: Reports systems reviewed and no addt'l complaints, except as documented Gastrointestinal Gastrointestinal: Reports systems reviewed and no addt'l complaints, except as documented Genitourinary Genitourinary: Reports systems reviewed and no addt'l complaints, except as documented Musculoskeletal Musculoskeletal: Reports systems reviewed and no addt'l complaints, except as documented Integumentary Integumentary: Reports systems reviewed and no addt'l complaints, except as documented Neurologic Neurologic: Reports systems reviewed and no addt'l complaints, except as documented Psychiatric Psychiatric: Reports systems reviewed and no addt'l complaints, except as documented Endocrine Endocrinology: Reports systems reviewed and no addt'l complaints, except as documented Hematologic/Lymphatic Hematologic/Lymphatic: Reports systems reviewed and no addt'l complaints, except as documented Allergic/Immunologic Allergic/Immunologic: Reports systems reviewed and no addt'l complaints, except as documented Vital Signs Vital Signs Vital Signs: 01/26/21 03:13 01/26/21 03:14 01/26/21 03:15 Temperature 97.9 F Pulse Rate 100 Blood Pressure 135/75 H BP Systolic 135 BP Diastolic 75 Pulse Ox 100 01/26/21 04:16 Temperature Pulse Rate 73 Blood Pressure 132/64 H BP Systolic 132 BP Diastolic 64 Pulse Ox Physical Exam Const alert, oriented x3, no apparent distress, average body habitus, healthy appearing and well nourished HEENT normocephalic and moist oral mucous membranes Head and Scalp: atraumatic Eyes PERRL and EOMs intact bilaterally Neck full ROM Resp normal respiratory effort, no retractions and no use of accessory muscles Cardio regular rate and regular rhythm GI soft to palpation, non-tender and non-distended Extremity normal to inspection and full ROM Skin no rashes or lesions noted Neuro no focal motor deficits and no sensory deficits noted Psych mental status grossly normal, affect normal, speech normal and activity/motor behavior normal Labs Labs Labs: Blood Type O NEGATIVE Antibody Screen NEGATIVE Hct 36.3 % (37-47) L Hgb 12.0 g/dL (12.0-15.0) Obstetrics US Hep Bs Antigen Non-Reactive (Nonreactive) Neisseria gonorrhoeae DNA (JENNY) Negative (Negative) HIV 1&2 Antibody Non-Reactive (Nonreactive) Glucose 1 Hr 50 gm 123 mg/dL (70-140) Assessment & Plan (1) Active labor at term: PLAN: Patient presents IAL, plan expectant management for , pitocin/AROM PRN if needed. Pain management: plans natural GBS .negative Management of any complications: none I have reviewed the [facility] and made any clinically relevant updates. (2) COVID-19 affecting , antepartum: COMMENT: Needs Baby ASA and growth US- 12/21/20 patient admitted and given steroids, plan testing weekly, discussed MFM rec to consider IOL at 39-40w, as long as testing reassuring plan to await spontaneous labor (3) Grand multiparity: (4) H/O precipitous labor and deliveries, antepartum: (5) Rh negative state in antepartum period: COMMENT: Rhogam PRN and at 28 weeks (6) Supervision of high risk , antepartum: COMMENT: DAVID 01/22/21 [place]! PC: Fantasma Devine Ioan(Shaw), Bhanu Spouse: Cabrera(Shaw) (7) : QUALIFIERS: Weeks of gestation: 40 weeks Qualified Code(s): Z3A.40 - 40 weeks gestation of COMMENT: declines genetic, carrier and NTD, anatomy nl (8) AMA (advanced maternal age) multigravida 35+: QUALIFIERS: Trimester: third trimester Qualified Code(s): O09.523 - Supervision of elderly multigravida, third trimester COMMENT: growth scan at 36 weeks
--- NOTE | 2021-01-26 04:22 | OP.PCM_ITS ---
Assessment & Plan (1) Active labor at term: (2) COVID-19 affecting , antepartum: COMMENT: Needs Baby ASA and growth US- 12/21/20 patient admitted and given steroids, plan testing weekly, discussed MFM rec to consider IOL at 39-40w, as long as testing reassuring plan to await spontaneous labor (3) Grand multiparity: (4) H/O precipitous labor and deliveries, antepartum: (5) Rh negative state in antepartum period: COMMENT: Rhogam PRN and at 28 weeks (6) Supervision of high risk , antepartum: COMMENT: DAVID 01/22/21 [place]! PC: Fantasma Devine, Cabrera(Shaw), Bhanu Spouse: Cabrera(Shaw) (7) : QUALIFIERS: Weeks of gestation: 40 weeks Qualified Code(s): Z3A.40 - 40 weeks gestation of COMMENT: declines genetic, carrier and NTD, anatomy nl (8) AMA (advanced maternal age) multigravida 35+: QUALIFIERS: Trimester: third trimester Qualified Code(s): O09.523 - Supervision of elderly multigravida, third trimester COMMENT: growth scan at 36 weeks Maternal Data Information DAVID Calculator Estimated Delivery Date Method Current WG Current Estimate 01/22/21 LMP (Certain) 40w 4d Final DAVID: 01/22/21 Final DAVID Source: US <20 weeks Vaginal Delivery Maternal Presentation Maternal Presentation: Active Labor Maternal Presentation: 35-year-old at 40 weeks gestation admitted in active labor. Patient made rapid cervical change to complete dilation without augmentation. Operative Information Date of Procedure: 01/26/21 Pre-Operative Diagnosis: Term , active labor Post-Operative Diagnosis: Same Surgery / Procedure Performed: Spontaneous Vaginal Delivery Type of Anesthesia: Local with 1% Lidocaine Estimated Blood Loss: 150 Findings Description of Procedure: Patient began pushing and delivered the head in the NATTY presentation. The head was delivered atraumatically and no nuchal cord was noted. The anterior and posterior shoulders delivered without complication followed by the rest of the infant and the infant was placed on the maternal abdomen. Delayed cord clamping was employed for approximately 60 seconds. Cord was clamped and cut and gentle traction was applied to the cord and the placenta delivered spontaneously immediately following it was noted to be intact with three-vessel cord. The perineum and vagina were inspected and a midline second- degree perineal laceration was noted and repaired in the standard fashion using 3-0 Vicryl rapide suture. EBL was 150 cc. Patient and tolerated delivery well. Presentation: Vertex and NATTY Amniotic Membrane Rupture Type: Spontaneous Amniotic Fluid Description: Clear Placenta Disposition: [facility] Cord Vessel Description: 3 Vessels Cord Entanglement: None Infant A Gender: Female (1 minute): 8 (5 minute): 8 Delayed Cord Clamping: Yes Post Vaginal Delivery Medications Given After Delivery: - (IM Pitocin) Episiotomy Description: None Laceration: Midline, Perineal Extension/lac and 2nd degree Complication Complications: None Procedures Urinary/Genital [id number]: [id number] Vaginal Delivery [facility]
--- NOTE | 2021-01-26 04:27 | PCM.DC ---
Discharge Instructions Diet Discharge Diet: No restrictions Activity Discharge Activity: Return to Normal Activity, May not drive while taking narcotic pain medications. and May Shower May resume sexual activity in: 4-6 weeks Dressing / Incision Call your doctor if your incision/area has: Continuous Slow Oozing, Sudden Increased Bleeding, Increased Pain/ Swelling, Increased Redness and Foul Smelling Discharge Follow Up Care Please Follow Up With: Romana Love MD When: Call to make an appointment with your doctor in 6 weeks. If you had elevated Blood Pressure or 4th degree laceration you will need to be seen in 2 weeks. Test Results: Test results from this visit will be discussed in further detail at your follow-up appointment, if applicable. Discharge Plan Admission Admit Date/Time: 01/26/21 03:30 Primary Reason for Your Visit: Active labor Attending Provider: Romana Love Primary Care Provider: Care Physician,No Primary Instructions Patient Instructions: After a Vaginal Discharge Orders/Prescriptions Prescriptions: New naproxen 250 MG tablet 250 - 500 mg PO Q8H PRN PRN (Reason: MILD PAIN) Qty: 30 RF: 1 Continued PNV-DHA 27 mg iron-1 mg -300 mg capsule 1 cap PO DAILY RF: 0 aspirin 81 MG tablet,chewable 1 tablet PO DAILY RF: 0 dexamethasone 6 MG tablet 6 mg PO DAILY Qty: 8 RF: 0 albuterol sulfate 1 PUFF inhaler 2 puff INHALATION Q4H PRN PRN (Reason: SOB &/OR WHEEZING) RF: 0 famotidine [Pepcid] 20 mg Tablet 20 mg PO DAILY RF: 0 Referrals / Follow Up: Care Physician,No Primary [Primary Care Provider] -
[2021-01-26] MEDS: Naproxen 500 MG Tablet PO (06:45)
[2021-01-27] VITALS (9 sets, daily range): BP systolic 107–121; BP diastolic 51–78; PULSE 69–93; RESP 16–18; TEMP 36.2–36.8; O2SAT 98
--- NOTE | 2021-01-27 07:46 | PN.OBGYN_ITS ---
Subjective Subjective Patient doing well without complaints. Tolerating PO. Ambulating and voiding without difficulty. feeding well. Denies chest pain, shortness of breath, calf pain/swelling, fevers, chills, lightheadedness. Objective Data Objective Data Vital Signs: Vital Signs Temp Pulse Resp BP Pulse Ox 97.1 F L 71 18 107/57 L 97 01/27/21 04:31 01/27/21 04:32 01/27/21 04:31 01/27/21 04:32 01/26/21 06:16 Oxygen Delivery Method Room Air Weight: 208 lb Body Mass Index (BMI) 32.5 Intake & Output: Intake and Output for Last 24 Hours 01/25/21 01/26/21 01/27/21 23:59 23:59 23:59 Intake Total 366.3 / 366.3 Output Total 1200 / 1200 Balance -833.7 / -833.7 Lab / Micro Data Result Diagrams: 01/26/21 03:23 Labs: Laboratory Results - last 24 hr 01/26/21 07:50 Screen NEGATIVE Baby's Blood Type O POSITIVE Baby's MIR NEGATIVE ROS Constitutional Constitutional: Reports systems reviewed and no addt'l complaints, except as do cumented Cardiovascular Cardiovascular: Reports systems reviewed and no addt'l complaints, except as documented Respiratory/Chest Respiratory/Chest: Reports systems reviewed and no addt'l complaints, except as documented Gastrointestinal Gastrointestinal: Reports systems reviewed and no addt'l complaints, except as documented Physical Exam Const alert, oriented x3 and no apparent distress HEENT Head and Scalp: atraumatic Resp normal respiratory effort GI soft to palpation and non-tender Bimanual Exam - Vag & Uterus: uterus non-tender Uterus Palpation: uterus fundus firm (below Umbilicus) Assessment & Plan (1) Vaginal delivery: PLAN: s/p PPD # 1 1. routine post delivery care 2. breast feeding- support given 3. rh positive 4. rubella immune
[2021-01-29 10:28] LABS: Rubella IgG Reactive (Nonreactive)
== END 2021-01-27 13:12 | disposition home or self-care (01) | DRG 807 ==
LOC: WPOUT 03:33 → WP 03:33
PROVIDERS: Obstetrics & Gynecology; Admitting Provider Obstetrics & Gynecology; Visit Provider Obstetrics & Gynecology
DX: O70.1 Second degree perineal laceration during delivery (principal); Z79.82 Long term (current) use of aspirin; Z79.1 Long term (current) use of non-steroidal anti-inflammatories (NSAID); Z79.899 Other long term (current) drug therapy; Z86.16 Personal history of COVID-19; Z3A.40 40 weeks gestation of pregnancy; Z37.0 Single live birth
CPT/HCPCS: 59025; 59050; 76815; 85025; 85461; 86762; 86850; 86900; 86901; 90384; 99218; J7120; G0378; J2790

== ENCOUNTER → 2021-03-07 | Outpatient (CLI) | payer OTHER, SELFPAY ==
[2021-03-07 10:27] VITALS: BMI 31.4
[2021-03-10 07:32] LABS: HPV APTIMA, High Risk Negative (Negative)
== END | disposition home or self-care (01) ==
LOC: LABSPEC 12:23
PROVIDERS: Referring Provider Obstetrics & Gynecology; Visit Provider Obstetrics & Gynecology
DX: Z12.4 Encounter for screening for malignant neoplasm of cervix (principal)
CPT/HCPCS: 87624; 88175; G0145

== ENCOUNTER → 2022-05-20 | Outpatient (CLI) | payer OTHER, SELFPAY ==
[2022-05-20 15:51] LABS: hCG Titer Quant., Serum 4729 mIU/mL (1-3)
== END | disposition home or self-care (01) ==
LOC: LAB 13:56
PROVIDERS: Visit Provider Obstetrics & Gynecology
DX: O02.1 Missed abortion (principal)
CPT/HCPCS: 36415; 84702; 86850; 86900; 86901

== ENCOUNTER → 2022-05-23 | Outpatient (CLI) | payer OTHER, SELFPAY ==
[2022-05-23 17:00] LABS: hCG Titer Quant., Serum 1489 mIU/mL (1-3)
== END | disposition home or self-care (01) ==
LOC: LAB 15:27
PROVIDERS: Visit Provider Obstetrics & Gynecology
DX: O46.90 Antepartum hemorrhage, unspecified, unspecified trimester (principal)
CPT/HCPCS: 36415; 84702

== ENCOUNTER → 2022-06-27 | Outpatient (CLI) | payer OTHER, SELFPAY ==
[2022-06-27 17:25] LABS: hCG Titer Quant., Serum < 1 mIU/mL (1-3)
== END | disposition home or self-care (01) ==
LOC: LAB 16:04
PROVIDERS: Referring Provider Obstetrics & Gynecology; Visit Provider Obstetrics & Gynecology
DX: O03.9 Complete or unspecified spontaneous abortion without complication (principal)
CPT/HCPCS: 36415; 84702

== ENCOUNTER → 2022-09-04 | Outpatient (CLI) | payer OTHER, SELFPAY ==
[2022-09-04 12:24] LABS: Vitamin D,25 Hydroxy 30.4 ng/mL
[2022-09-04 12:37] LABS: Anion Gap 4 (5-15); BUN 11 mg/dL (7-18); BUN/Creat Ratio 18.1 RATIO (10-20); Calcium,Total 9.1 mg/dL (8.5-10.1); Chloride 103 mmol/L (98-107); Cholesterol 168 mg/dL (200); Creatinine, Serum 0.61 mg/dL (0.55-1.02); EST Glomerular Filtration Rate 117 mL/min (>60); Est Glom Filt Rate - Afr Amer 141 mL/min (>60); Glucose 89 mg/dL (74-106); High Density Lipoprotein 46 mg/dL; Potassium 3.7 mmol/L (3.5-5.1); Sodium Level 137 mmol/L (136-145); Thyroid Stim Hormone (TSH) 0.45 uIU/mL (0.358-3.74); Triglycerides 145 mg/dL; Very Low Density Lipoprotein 29 mg/dL (5-40)
== END | disposition home or self-care (01) ==
LOC: LAB 10:13
PROVIDERS: Referring Provider Family Medicine; Visit Provider Family Medicine
DX: Z13.1 Encounter for screening for diabetes mellitus (principal); Z13.220 Encounter for screening for lipoid disorders; Z13.29 Encounter for screening for other suspected endocrine disorder; Z13.21 Encounter for screening for nutritional disorder
CPT/HCPCS: 36415; 80048; 80061; 82306; 84443

== ENCOUNTER → 2024-07-13 | Outpatient (CLI) | payer OTHER, SELFPAY ==
--- NOTE | 2024-07-13 16:07 | BI_ITS ---
MAMMOGRAPHY - BILATERAL SCREENING REASON FOR EXAM: Female, 39 years old. Routine annual screening examination. PERTINENT HISTORY: Non-contributory. Occasional left lateral tenderness during menstrual cycle. TECHNIQUE: Digital bilateral breast qi (3D mammographic acquisition) in the CC and MLO projections. 2-D mediolateral oblique (MLO) and craniocaudad (CC) views of both breasts were obtained. CAD: Full Field Digital Mammography with Computer Added Detection was performed. COMPARISON: None. Baseline examination. FINDINGS: Breast Composition: The breasts are extremely dense, which lowers the sensitivity of mammography. There are no dominant masses or suspicious calcifications. No other significant abnormalities are identified. BI/SCRN MAMM (CAD)W/QI BILAT IMPRESSION: Negative screening mammogram. Yearly followup mammogram recommended. (A) ASSESSMENT CATEGORY: BIRADS Category 1: Negative. A letter regarding these results will be sent to the patient by the facility within 30 days. Approximately 10% of breast cancers are not detected by mammography. A normal mammogram should not delay biopsy of a clinically suspicious abnormality. [id number] Electronically Signed: Prateek Leon MD at 10:00 EST ,
== END | disposition home or self-care (01) ==
LOC: OPBI 16:07
PROVIDERS: Referring Provider Advanced Practice Midwife; Visit Provider Advanced Practice Midwife
DX: Z12.31 Encounter for screening mammogram for malignant neoplasm of breast (principal)
CPT/HCPCS: 77063; 77067

== ENCOUNTER → 2024-08-19 | Outpatient (CLI) | payer OTHER, SELFPAY ==
[2024-08-19 17:34] LABS: Absolute Lymphocyte Count 3.25 X10^3/uL (0.83-4.51); Absolute Neutrophil Count 2.4 X10^3/uL (2.0-7.7); Basophil# 0.12 X10^3/uL; Basophil% 1.9 % (0-1); Eosinophil# 0.18 X10^3/uL; Eosinophils% 2.8 % (0-5); Hematocrit 41.8 % (37-47); Hemoglobin 13.7 g/dL (12.0-15.0); Lymphocyte # 3.25 X10^3/ul (0.83-4.51); Lymphocyte % 50.5 % (19-41); Mean Corp Hgb Conc 32.8 g/dL (32-36); Mean Corpuscular Hgb 28.3 pg (27.0-32.0); Mean Corpuscular Volume 86.4 fL (81-99); Mean Platelet Vol. 9.9 fl (6.2-12.0); Monocyte# 0.51 X10^3/uL; Monocyte% 7.9 % (0-10); NRBC Flagged by Analyzer 0 % (0-5); Neutrophil # 2.36 X10^3/uL (2.7-7.7); Neutrophil % 36.6 % (47-70); Platelet Count 360 K/mm3 (150-450); RBC Distribution Width CV 12.1 % (11.6-14.6); RBC Distribution Width SD 38.4 fl (35.1-43.9); Red Blood Count 4.84 M/mm3 (4.2-5.4); White Blood Count 6.4 K/mm3 (4.4-11.0)
[2024-08-19 17:39] LABS: Vitamin D,25 Hydroxy 45.4 ng/mL
[2024-08-19 17:43] LABS: ALB/GLOB Ratio 1.1 RATIO (0.9-2.4); AST(SGOT) 17 U/L (15-37); Alanine Aminotransfer ALT/SGPT 21 U/L (13-56); Albumin, Serum 4.1 g/dL (3.2-5.0); Alkaline Phosphatase 66 U/L (45-117); Anion Gap 5 (5-15); BUN 7 mg/dL (7-18); BUN/Creat Ratio 8.4 RATIO (10-20); Calcium,Total 9.6 mg/dL (8.5-10.1); Chloride 103 mmol/L (98-107); Cholesterol 177 mg/dL (200); Creatinine, Serum 0.83 mg/dL (0.55-1.02); EST Glomerular Filtration Rate 81 mL/min (>60); Est Glom Filt Rate - Afr Amer 98 mL/min (>60); Globulin 3.6 g/dL (2.2-4.2); Glucose 83 mg/dL (74-106); High Density Lipoprotein 62 mg/dL; Potassium 3.4 mmol/L (3.5-5.1); Protein, Total 7.7 g/dL (6.4-8.2); Sodium Level 138 mmol/L (136-145); Triglycerides 71 mg/dL; Very Low Density Lipoprotein 14 mg/dL (5-40)
[2024-08-26 11:08] LABS: HPV APTIMA, High Risk Negative (Negative)
== END | disposition home or self-care (01) ==
LOC: BWCLAB 16:41
PROVIDERS: Referring Provider Advanced Practice Midwife; Visit Provider Advanced Practice Midwife
DX: Z12.4 Encounter for screening for malignant neoplasm of cervix (principal); Z13.29 Encounter for screening for other suspected endocrine disorder; Z13.220 Encounter for screening for lipoid disorders; Z13.21 Encounter for screening for nutritional disorder
CPT/HCPCS: 36415; 80053; 80061; 82306; 84443; 85025; 87624; 88175; G0145

== ENCOUNTER → 2025-06-07 | Outpatient (CLI) | payer OTHER, SELFPAY ==
[2025-06-07 15:38] LABS: Hematocrit 38.4 % (37-47); Hemoglobin 12.6 g/dL (12.0-15.0); Immature Granulocytes Count 0.010 X10^3/uL (0.0-0.0); Mean Corp Hgb Conc 32.8 g/dL (32-36); Mean Corpuscular Volume 85.9 fL (81-99); Mean Platelet Vol. 9.4 fl (6.2-12.0); NRBC Flagged by Analyzer 0 % (0-5); Platelet Count 350 K/mm3 (150-450); RBC Distribution Width CV 12.8 % (11.6-14.6); RBC Distribution Width SD 39.7 fl (35.1-43.9); Red Blood Count 4.47 M/mm3 (4.2-5.4); White Blood Count 4.2 K/mm3 (4.4-11.0)
[2025-06-07 15:45] LABS: Prothrombin Time (Protime)PT. 13.8 SECONDS (11.7-14.9)
[2025-06-07 15:46] LABS: Partial Thromboplast Time 27.5 Seconds (24.1-36.2)
[2025-06-07 17:10] LABS: Anion Gap 13 (5-15); BUN 10 mg/dL (4-19); BUN/Creat Ratio 12.8 RATIO (10-20); Calcium,Total 9.2 mg/dL (7.6-11.0); Carbon Dioxide 20.2 mmol/L (21.0-32.0); Chloride 103 mmol/L (98-108); Cholesterol 218 mg/dL (<=200); Glucose 81 mg/dL (70-99); Low Density Lipoprotein Calc. 147 mg/dL; Potassium 4.3 mmol/L (3.3-5.1); Triglycerides 108 mg/dL; Very Low Density Lipoprotein 22 mg/dL (5-40); Vitamin D,25 Hydroxy 46.3 ng/mL (30-100); cholesterol:hdl ratio screen 4.45
[2025-06-09 15:08] LABS: ANTINUCLEAR ANTIBODIES DIRECT Negative (Negative)
== END | disposition home or self-care (01) ==
LOC: MFPLAB 10:14
PROVIDERS: Referring Provider Family Medicine; Visit Provider Family Medicine
DX: H35.63 Retinal hemorrhage, bilateral (principal)
CPT/HCPCS: 80048; 80061; 82306; 83036; 85025; 85610; 85652; 85730; 86038

== ENCOUNTER → 2025-08-11 | Outpatient (CLI) | payer OTHER, SELFPAY ==
[2025-08-15 19:08] LABS: Chlamydia By Nucleic Acid AMP Negative (Negative); Gonococcus By Nucleic Acid AMP Negative (Negative)
== END | disposition home or self-care (01) ==
LOC: LABSPEC 16:25
PROVIDERS: Referring Provider Advanced Practice Midwife; Visit Provider Advanced Practice Midwife
DX: O09.90 Supervision of high risk pregnancy, unspecified, unspecified trimester (principal); Z3A.00 Weeks of gestation of pregnancy not specified
CPT/HCPCS: 87086; 87491; 87591